=== PATIENT | male | born 1960 | race Hispanic/Latino ===

== ENCOUNTER 2020-08-13 08:04 | Inpatient (IN) | payer MEDICAID, OTHER ==
[~2020-08-13] VITALS: Ht 172.7 cm; Wt 89.4 kg
[2020-08-13] VITALS (24 sets, daily range): BP systolic 126–167; BP diastolic 73–98
[2020-08-13] MEDS ORDERED: HEPARIN SODIUM 1000UNIT/ML 10ML VIAL ONE (08:06)
[2020-08-13] MEDS ORDERED: IOHEXOL-350 75 ML VIAL IV ONE ×2 (08:06→08:54)
[2020-08-13] MEDS ORDERED: IOHEXOL 350 MG/ML 100ML INFUS..BTL IV ONE (08:06)
[2020-08-13] MEDS ORDERED: LIDOCAINE HCL 2% 20ML ONE (08:06)
[2020-08-13] MEDS ORDERED: NITROGLYCERIN 2 MG/VIAL VIAL IV ONE (08:06)
[2020-08-13] MEDS ORDERED: FENTANYL CITRATE PF 50 MCG/1 ML 2ML VIAL ONE (08:06)
[2020-08-13] MEDS ORDERED: MIDAZOLAM HCL 1 MG/ML 2ML VIAL ONE (08:06)
[2020-08-13] MEDS ORDERED: BIVALIRUDIN 250 MG/VIAL IV ONE (08:09)
[2020-08-13 08:14] LABS: BASOPHILS % (AUTO) 0.4 % (0.0-5.0); EOSINOPHILS % (AUTO) 2.3 % (0.0-8.0); HEMATOCRIT 35.2 % (42-54); LYMPHOCYTES % (AUTO) 33.6 % (21.0-51.0); MEAN CORPUSCULAR HEMOGLOBIN 32.2 pg (27.0-33.0); MEAN CORPUSCULAR HGB CONC 35.8 g/dL (32.0-36.0); MONOCYTES % (AUTO) 8.4 % (3.0-13.0); NEUTROPHILS % (AUTO) 54.9 % (40.0-77.0); PLATELET COUNT (AUTO) 171 K/uL (130-400); RED BLOOD CELL COUNT(AUTO) 3.91 MIL/uL (4.50-6.20); RED CELL DISTRIBUTION WIDTH 12.1 % (11.0-15.5); WHITE BLOOD COUNT (AUTO) 6.9 K/uL (4.8-10.8)
[2020-08-13 08:26] LABS: INR 1.13 (0.85-1.15); PROTHROMBIN TIME 12.2 SEC (9.6-11.6)
[2020-08-13 08:27] LABS: PARTIAL THROMBOPLASTIN TIME 21.8 SEC (26.3-35.5)
[2020-08-13 08:29] LABS: ALBUMIN 3.7 g/dL (3.5-5.0); BILIRUBIN,TOTAL 0.4 mg/dL (0.2-1.0); POTASSIUM 4.5 mmol/L (3.5-5.1); TOTAL PROTEIN, SERUM 8.1 g/dL (6.0-8.3)
[2020-08-13] MEDS ORDERED: VERAPAMIL HCL 2.5 MG/ML VIAL ONE (08:40)
[2020-08-13] MEDS ORDERED: ONDANSETRON HCL 4 MG/2 ML VIAL IVP PRN (08:45)
[2020-08-13] MEDS ORDERED: ACETAMINOPHEN 325 MG TAB PO PRN (08:45)
[2020-08-13] MEDS ORDERED: TICAGRELOR 90 MG TABLET ONE (08:49)
[2020-08-13] MEDS ORDERED: MORPHINE SULFATE 4 MG/1ML SYG ONE (08:49)
[2020-08-13] MEDS: FAMOTIDINE/PF 20 MG/2 ML VIAL IV SCH ×2 (09:00→21:13)
[2020-08-13] MEDS ORDERED: SODIUM CHLORIDE 0.9% 1000ML 1,000 ML IV SCH (09:30)
[2020-08-13] MEDS ORDERED: DEXTROSE 50%-WATER 50 ML DISP.SYRIN IV PRN (09:30)
[2020-08-13] MEDS ORDERED: GLUCAGON 1MG KIT 1 MG ML IM PRN (09:30)
[2020-08-13] MEDS ORDERED: NITROGLYCERIN 0.4 MG SL TAB SL PRN (09:30)
[2020-08-13 09:50] LABS: HEMOGLOBIN A1C 8.1 % (4.0-6.0)
[2020-08-13 10:28] LABS: CHOLESTEROL 196 mg/dL (<200); HDL CHOLESTEROL 107 mg/dL (29-71); LDL DIRECT 111 mg/dL (0-99); TRIGLYCERIDES 106 mg/dL (30-200)
[2020-08-13] MEDS: INSULIN HUMULIN R 100 UNIT/ML 3ML SQ SCH ×3 (11:59→21:15)
[2020-08-13] MEDS ORDERED: LOSA100T58 PO (13:31)
[2020-08-13] MEDS ORDERED: FENO145T26 PO (13:31)
[2020-08-13] MEDS ORDERED: LINA5TAB PO (13:31)
[2020-08-13] MEDS ORDERED: GLIP10TA PO (13:31)
[2020-08-13] MEDS: TICAGRELOR 90 MG TABLET PO SCH (21:13)
[2020-08-13] MEDS: ATORVASTATIN CALCIUM 40 MG TABLET PO SCH (21:13)
[2020-08-13] MEDS: METOPROLOL TARTRATE 25 MG TAB PO SCH (21:13)
[2020-08-14] VITALS (18 sets, daily range): BP systolic 100–140; BP diastolic 52–79
[2020-08-14 05:31] LABS: BASOPHILS % (AUTO) 0.3 % (0.0-5.0); EOSINOPHILS % (AUTO) 0.7 % (0.0-8.0); HEMATOCRIT 34.7 % (42-54); LYMPHOCYTES % (AUTO) 14.6 % (21.0-51.0); MEAN CORPUSCULAR HEMOGLOBIN 32.3 pg (27.0-33.0); MEAN CORPUSCULAR VOLUME 89.7 fL (79-99); MONOCYTES % (AUTO) 8.6 % (3.0-13.0); NEUTROPHILS % (AUTO) 75.3 % (40.0-77.0); PLATELET COUNT (AUTO) 171 K/uL (130-400); RED BLOOD CELL COUNT(AUTO) 3.87 MIL/uL (4.50-6.20); RED CELL DISTRIBUTION WIDTH 12.1 % (11.0-15.5); WHITE BLOOD COUNT (AUTO) 8.7 K/uL (4.8-10.8)
[2020-08-14 05:55] LABS: CREATININE 0.9 mg/dL (0.5-1.5); POTASSIUM 3.5 mmol/L (3.5-5.1)
[2020-08-14] MEDS ORDERED: POTASSIUM CHLORIDE 10% ELIXIR 20 MEQ/15 ML UDCUP PO PRN (08:30)
[2020-08-14] MEDS ORDERED: POTASSIUM CHLORIDE 20MEQ/100ML 100 ML IV PRN (08:30)
[2020-08-14] MEDS: PANTOPRAZOLE SODIUM 40 MG TABLET.DR PO SCH (08:45)
[2020-08-14] MEDS: FAMOTIDINE/PF 20 MG/2 ML VIAL IV SCH ×2 (08:45→20:55)
[2020-08-14] MEDS: TICAGRELOR 90 MG TABLET PO SCH ×2 (08:45→20:57)
[2020-08-14] MEDS: LISINOPRIL 10 MG TABLET PO SCH (08:45)
[2020-08-14] MEDS: ASPIRIN 81MG TAB.CHEW PO SCH (08:45)
[2020-08-14] MEDS: METOPROLOL TARTRATE 25 MG TAB PO SCH ×2 (08:45→20:56)
[2020-08-14] MEDS: INSULIN HUMULIN R 100 UNIT/ML 3ML SQ SCH ×4 (08:48→22:12)
[2020-08-14] MEDS: POTASSIUM CHLORIDE 20 MEQ ERTAB PO PRN (08:58)
[2020-08-14] MEDS: ATORVASTATIN CALCIUM 40 MG TABLET PO SCH (20:56)
[2020-08-15 04:00] VITALS: BP 107/68
[2020-08-15 04:16] LABS: BASOPHILS % (AUTO) 0.4 % (0.0-5.0); EOSINOPHILS % (AUTO) 1.8 % (0.0-8.0); HEMATOCRIT 35.4 % (42-54); LYMPHOCYTES % (AUTO) 23.2 % (21.0-51.0); MEAN CORPUSCULAR HEMOGLOBIN 31.9 pg (27.0-33.0); MONOCYTES % (AUTO) 10.4 % (3.0-13.0); PLATELET COUNT (AUTO) 162 K/uL (130-400); RED BLOOD CELL COUNT(AUTO) 3.89 MIL/uL (4.50-6.20); RED CELL DISTRIBUTION WIDTH 12.1 % (11.0-15.5); WHITE BLOOD COUNT (AUTO) 8.3 K/uL (4.8-10.8)
[2020-08-15 04:31] LABS: CREATININE 1.1 mg/dL (0.5-1.5); MAGNESIUM 1.8 mg/dL (1.80-2.40); POTASSIUM 3.7 mmol/L (3.5-5.1)
[2020-08-15] MEDS: INSULIN HUMULIN R 100 UNIT/ML 3ML SQ SCH ×3 (07:30→17:05)
[2020-08-15 07:50] VITALS: BP 119/71
[2020-08-15] MEDS: TICAGRELOR 90 MG TABLET PO SCH (09:26)
[2020-08-15] MEDS: ASPIRIN 81MG TAB.CHEW PO SCH (09:26)
[2020-08-15] MEDS: PANTOPRAZOLE SODIUM 40 MG TABLET.DR PO SCH (09:26)
[2020-08-15] MEDS: FAMOTIDINE/PF 20 MG/2 ML VIAL IV SCH (09:27)
[2020-08-15] MEDS: METOPROLOL TARTRATE 25 MG TAB PO SCH (09:27)
[2020-08-15] MEDS: LISINOPRIL 10 MG TABLET PO SCH (09:27)
[2020-08-15 12:09] VITALS: BP 117/75
[2020-08-15 16:22] VITALS: BP 126/84
[2020-08-15] MEDS ORDERED: METO25 PO (16:49)
[2020-08-15] MEDS ORDERED: LISI10TA24 PO (16:49)
[2020-08-15] MEDS ORDERED: ASPI-1005 PO (16:49)
[2020-08-15] MEDS ORDERED: ATOR40TA69 PO (16:49)
[2020-08-15] MEDS ORDERED: Nitroglycerin 0.4MG Sl Tab SL (16:49)
== END 2020-08-15 17:51 | disposition home or self-care (01) | DRG 174 ==
LOC: EDH 08:04 → OBSVTOIN 08:05 → EDHIP 08:05 → 2CH 11:48 → 4BH 08-14 17:11
PROVIDERS: ADMIT Hospitalist; ATTEND Hospitalist
PROC: 027034Z Dilation of Coronary Artery, One Artery with Drug-eluting Intraluminal Device, Percutaneous Approach (ICD-10-PCS; principal; 2020-08-13)
PROC: 4A023N7 Measurement of Cardiac Sampling and Pressure, Left Heart, Percutaneous Approach (ICD-10-PCS; 2020-08-13)
PROC: B2111ZZ Fluoroscopy of Multiple Coronary Arteries using Low Osmolar Contrast (ICD-10-PCS; 2020-08-13)
PROC: B2151ZZ Fluoroscopy of Left Heart using Low Osmolar Contrast (ICD-10-PCS; 2020-08-13)
DX: I21.19 ST elevation (STEMI) myocardial infarction involving other coronary artery of inferior wall (principal); I50.41 Acute combined systolic (congestive) and diastolic (congestive) heart failure; I11.0 Hypertensive heart disease with heart failure; E78.5 Hyperlipidemia, unspecified; E87.6 Hypokalemia; I25.10 Atherosclerotic heart disease of native coronary artery without angina pectoris; E11.65 Type 2 diabetes mellitus with hyperglycemia
CPT/HCPCS: 36415; 71045; 80048; 80053; 80061; 82948; 83036; 83735; 83880; 84484; 85025; 85610; 85730; 93005; 93306; 93356; 93458; C1760; C1769; C1887; C1894; C9606; G0378; J0583; J1644; J1815; J2250; J2270; J3010; J3490; Q9967

== ENCOUNTER 2025-06-01 15:49 | Inpatient (IN) | payer MEDICAID, MEDICARE ==
[~2025-06-01] VITALS: Ht 162.6 cm; Wt 84.1 kg
[~2025-06-01 15:49] MED LIST: ASPI-1005 PO; ATOR40TA69 PO; GLIP10TA2 PO; LINA5TAB PO; LISI10TA24 PO; METO25 PO; Nitroglycerin 0.4MG Sl Tab SL
--- NOTE | 2025-06-01 15:58 | NUR ---
PT JUST PLACED IN MY ED BED 19
[2025-06-01 16:24] LABS: IMMATURE GRANULOCYTE ABSOLUTE 0.03 K/uL (0-1); NUCLEATED RED BLOOD CELLS 0.0 % (0.0-0.19); PLATELET COUNT (AUTO) 201 K/uL (130-400); RED BLOOD CELL COUNT(AUTO) 4.10 MIL/uL (4.50-6.20); RED CELL DISTRIBUTION WIDTH 11.9 % (11.0-15.5); WHITE BLOOD COUNT (AUTO) 8.5 K/uL (4.8-10.8)
[2025-06-01 16:40] LABS: CREATININE 1.4 mg/dL (0.5-1.3); GLOMERULAR FILTR. RATE CALC 56.0 mL/min (>90); GLUCOSE,RANDOM 156.0 mg/dL (70-105); SODIUM SERUM 135.0 mmol/L (136-145); UREA NITROGEN, BLOOD 18.0 mg/dL (7-18)
[2025-06-01 16:49] LABS: CREATINE KINASE, TOTAL 105.0 U/L (21-232)
[2025-06-01] MEDS: guaiFENesin-DM 200/20MG 10ML PO ONE (16:51)
--- NOTE | 2025-06-01 16:54 | HMCIMG ---
EXAM: CR Chest, 1 View. CLINICAL HISTORY: cough COMPARISON: None provided. FINDINGS: LUNGS: Right middle lobe airspace disease may reflect an infectious process. PLEURAL SPACES: No evidence of pleural effusion or pneumothorax. MEDIASTINUM: The cardiomediastinal silhouette is within normal limits. BONES: No aggressive appearing osseous lesion seen. IMPRESSION: 1. Right middle lobe airspace disease, possibly infectious. /[place]
[2025-06-01 16:58] LABS: COVID19 (SARS ANTIGEN RAPID) PRESUMPTIVE NEGATIVE (NEGATIVE); INFLUENZA TYPE A Negative For Type A (NEGATIVE); INFLUENZA TYPE B Negative For Type B (NEGATIVE)
[2025-06-01] MEDS: AZITHROMYCIN 500MG+NS 250ML 250 ML IV ONE (17:48)
[2025-06-01] MEDS: 0.9%NACL 1000ML 1,000 ML IV ONE (17:48)
--- NOTE | 2025-06-01 19:01 | NUR ---
HOSPITALIST AT BEDSIDE W/PT
--- NOTE | 2025-06-01 19:33 | NUR ---
REPORT ENDORSED TO COLT MALIK
--- NOTE | 2025-06-01 20:07 | HP ---
[facility] HISTORY AND PHYSICAL Date of Service: Jun 01, 2025 Time of Service: 19:50 PCP: Self Referral HISTORY OF PRESENT ILLNESS: This is a 64-year-old male past medical history of diabetes, hypertension hyperlipidemia coronary artery disease with cardiac stent x1 and past surgical history of right nephrectomy who present to the ED for complaints of dry cough,fever and chest tightness when coughing which started 3 days ago.Patient reports he was in [place] 8 days ago,denies any sick contact at home. Seen and examined patient in the Ed awake,alert and coherent,appears comfortable.Patient denies chest pain,palpitation,shortness of breath,nausea vomiting,sore throat ,body pain and abdominal pain.Patient reports he had fever yesterday and took Tylenol.Latest V/S T 98.1,HR 83,BP 156/83 Sat 98% RA. Labs: Hemoglobin 13, hematocrit 38, platelet count 201. Sodium 135, creatinine 1.4, GFR 56, random glucose 156 acid 1.4 troponin six. Chest x-ray result revealed right middle lobe airspace disease possible infectious. While in the ER patient received 1 L NS bolus, Rocephin 1 g IV and azithromycin IV dexamethasone 6 mg IM and Robitussin.Will admit patient for further medical management . REVIEW OF SYSTEMS CONSTITUTIONAL: Complain of fever Denies chills, or night sweats. No unintentional weight loss reported. NEUROLOGICAL: Denies headache, amaurosis fugax, motor weakness, sensory deficit, vertigo/spinning sensation, gait abnormalities, or tremors. ENT: No hearing loss, otalgia, otorrhea, rhinitis, rhinorrhea, hoarseness, or sore throat. CARDIOVASCULAR: Denies any exertional angina, dyspnea on exertion, orthopnea, paroxysmal nocturnal dyspnea, palpitations, life-threatening arrhythmias, claudication. PULMONARY: Dry cough Denies any shortness of breath, phlegm/sputum, hemoptysis, pleuritic chest pain. SLEEP: Denies morning headaches, daytime somnolence or napping. Denies difficulty falling asleep, staying asleep, waking from sleep. Denies knowledge of snoring. GASTROINTESTINAL: Denies any type of dysphagia to either liquids or solids. Denies nausea, vomiting, pyrosis, early satiety, abdominal pain, diarrhea, constipation, or changes in stool consistency or caliber. Denies coffee-ground emesis, hematemesis, hematochezia, or melanotic stools. GENITOURINARY: Denies frequency, urgency, nocturia, hematuria or incontinence (Storage/Irritative symptoms.) Low urinary stream, straining to void, urinary intermittency or hesitancy, splitting of the voiding stream, terminal dribbling. ENDOCRINOLOGIC: Denies polyuria, polydipsia, polyphagia or heat/cold intolerances. HEMATOLOGIC: Denies thrombophilia/previous clots, or coagulopathy/bleeding disorders. ONCOLOGIC: Denies personal history of malignancy. DERMATOLOGIC: Denies rashes or pruritus. PSYCHIATRIC: Denies any suicidal or homicidal ideation. Denies hallucinations. PAST MEDICAL HISTORY: [ Diabetes ,Hypertension, hyperlipidemia Coronary artery disease with cardiac stent x1 on August 2020 ] PAST SURGICAL HISTORY: [cardiac stent x1 and right nephrectomy ] PAST SOCIAL HISTORY: [ Patient lives with .Patient admits to drinking 6-7 beers per days last drink was 3 days ago.Patient denies cigarette and recreational drug use] FAMILY HISTORY: [ Noncontributory ] Coded Allergies: No Known Allergies (Verified Allergy, Unknown, 08/13/20) PHYSICAL EXAM GENERAL APPEARANCE: The patient is awake, alert, and oriented, in no acute c ardiopulmonary distress. NEUROLOGICAL: Cranial nerves II-XII grossly intact. Motor is 5/5 in bilateral upper and lower extremities proximal to distal. No sensory deficits. HEENT: Face is symmetric. Pupils are equal and reactive. Extraocular movements are intact. NECK: Supple. No JVD. No thyromegaly. No submental, submandibular, pre- /postauricular, occipital or supraclavicular lymphadenopathy. CHEST: Normal chest expansion. No Telemetry. LUNGS: Absence of any rales, rhonchi or any wheezing. CARDIOVASCULAR: Regular. S1 and S2 normal. No appreciable rubs, murmurs or gallops. ABDOMEN: Soft, nontender, and nondistended. There is no rebound, voluntary guarding, or rigidity. : Deferred. No Patterson. EXTREMITIES: Non-edematous and not cyanotic. No clubbing. Good capillary refill. SKIN: No skin breakdown. Vital Sign (Last 24 Hours) 06/01/25 15:50 Temp 98.1 Pulse 83 Resp 20 B/P (MAP) 156/83 Pulse Ox 98 O2 Delivery Room Air LABS: Laboratory: Test 06/01/25 17:30 06/01/25 16:17 Range/Units Lactic Acid Level 1.4 0.8-2.5 mmol/L White Blood Count 8.5 4.8-10.8 K/uL Red Blood Count 4.10 L 4.50-6.20 MIL/uL Hemoglobin 13.2 L 14.0-18.0 g/dL Hematocrit 38.2 L 42-54 % Mean Corpuscular Volume 93.2 79-99 fL Mean Corpuscular Hemoglobin 32.2 27.0-33.0 pg Mean Corpuscular Hemoglobin Concent 34.6 32.0-36.0 g/dL Red Cell Distribution Width 11.9 11.0-15.5 % Platelet Count 201 130-400 K/uL Mean Platelet Volume 9.9 7.5-10.5 fL Immature Granulocyte % (Auto) 0.4 0-1 % Neutrophils (%) (Auto) 71.9 40.0-77.0 % Lymphocytes (%) (Auto) 16.3 L 21.0-51.0 % Monocytes (%) (Auto) 9.7 3.0-13.0 % Eosinophils (%) (Auto) 1.2 0.0-8.0 % Basophils (%) (Auto) 0.5 0.0-5.0 % Neutrophils # (Auto) 6.1 1.8-7.7 K/uL Lymphocytes # (Auto) 1.4 1.0-4.8 K/uL Monocytes # (Auto) 0.8 0.1-1.0 K/uL Eosinophils # (Auto) 0.10 0.00-0.70 K/uL Basophils # (Auto) 0.04 0.00-0.20 K/uL Absolute Immature Granulocyte (auto 0.03 0-1 K/uL Nucleated Red Blood Cells 0.0 0.0-0.19 % Sodium Level 135 L 136-145 mmol/L Potassium Level 4.1 3.5-5.1 mmol/L Chloride Level 101 101-111 mmol/L Carbon Dioxide Level 26 21-32 mmol/L Blood Urea Nitrogen 18 7-18 mg/dL Creatinine 1.4 H 0.5-1.3 mg/dL Glomerular Filtration Rate Calc 56 >90 mL/min Random Glucose 156 H 70-105 mg/dL Total Calcium 9.0 8.5-10.1 mg/dL Total Creatine Kinase 105 21-232 U/L Troponin I High Sensitivity 6 4-75 ng/L DIAGNOSTICS / RADIOLOGY: [ ] ASSESSMENT: Possible community-acquired pneumonia POA Acute kidney injury POA Normocytic normochromic anemia POA Diabetes POA Hypertension POA Hyperlipidemia POA Obesity POA Alcoholism POA Coronary artery disease with cardiac stent x1 POA PLAN: We will admit patient in medical surgical We will start on heart healthy diet We will start on banana bag per CIWA protocol Continue Rocephin and azithromycin for broad-spectrum coverage We will start on famotidine 20 mg p.o. daily for GI prophylaxis We will replace electrolytes as needed per protocol We will start on insulin sliding scale AC & HS with hypoglycemia protocol We will add prn medication for fever,pain,cough , nausea and vomiting We will reconcile home meds once medlist available Counseled on Alcohol use cessation We will request labs in am Further orders to follow depending on above results Case discussed with attending physician and came up with above treatment and plan of care. ADVANCED CARE PLANNING 1. Which of the following were discussed? Hospice Care - No Therapeutic options - Yes Advance Directives - No Other discussions - 2. Discussed with who? Patient and Bhumi 3. Voluntary nature of this service was explained to the patient? Yes 4. Amount of time spent - ___23 min____ 5. Reviewed by Physician? (if this service was performed by NPP) Yes Patient seen and examined by me. Agree with note by EVENT MARKETING MANAGER SEE ADDITIONAL ORDERS PER CHART DISCUSSED WITH NURSING STAFF CHRISTINE NEIL Jun 01, 2025 20:06
--- NOTE | 2025-06-01 20:17 | ERN ---
ED Note History of Present Illness Stated Complaint: FLU LIKE SYMPTOMS Chief Complaint: Flu Symptoms Time Seen by MD: 15:59 Time Seen by Midlevel: 15:59 Dictation: The patient is a 64-year-old male with a history of diabetes, CAD, nephrectomy who presents to the emergency department with complaints of three days of dry cough, congestion and fevers. Patient reports he had some chest pain three days ago but denies any chest pain at the moment. Allergies: Coded Allergies: No Known Allergies (Verified Allergy, Unknown, 08/13/20) Home Meds Active Scripts [Nitroglycerin 0.4MG Sl Tab] 0.4 MG TAB.SUBL No Conflict Check, 0.4 MG SL AD PRN for CHEST PAIN, #15 TAB.SL 1 Refill Prov:YUSRA YIN [facility] 08/15/20 Metoprolol Tartrate (Lopressor) 25 Mg Tab, 25 MG PO BID for 30 Days, #60 TAB Prov:YUSRA YIN [facility] 08/15/20 Lisinopril (Lisinopril) 10 Mg Tablet, 10 MG PO DAILY for 30 Days, #30 TAB Prov:YUSRA YIN [facility] 08/15/20 Aspirin (ASPIRIN 81MG CHEW TAB) 81 Mg Tab.chew, 81 MG PO DAILY for 30 Days, #30 TAB.CHEW Prov:YUSRA YIN [facility] 08/15/20 Atorvastatin Calcium (LIPITOR) 40 Mg Tablet, 40 MG PO HS for 30 Days, #30 TAB Prov:YUSRA YIN [facility] 08/15/20 Reported Medications Glipizide (Glucotrol Xl) 10 Mg Tab.er.24, 10 MG PO DAILY 08/13/20 Linagliptin (Tradjenta) 5 Mg Tablet, 5 MG PO DAILY, TAB 08/13/20 Past Medical History Past Medical History: Diabetes-Type II, Heart Disease, Hypertension Additional Past Medical Hx: HX OF ID Surgical History: Other Surgical History Other: RIGHT NEPHRECTOMY RN Note Reviewed/Agreed w/PFSH: Yes Review of System Dictation Constitutional: Negative for ,chills, and weight loss positive for fever Eyes: Negative for injury, pain,redness, and discharge ENT: Negative for injury,pain or swelling Cardiovascular: Negative for palpitations, and edema for chest pain Respiratory: Negative for shortness of breath,and wheezing, positive for cough Abdomen/GI: Negative for abdominal pain, nausea, vomiting, diarrhea, and constipation Back: Negative for injury and pain : Negative for injury, bleeding and discharge MS/Extremity: Negative for injury and deformity Skin: Negative for rash, and discoloration Neuro: Negative for headache, weakness, numbness, tingling, and seizure Psych: Negative for suicide ideation, homicidal ideation, and hallucinations Initial Vital Sign VS Vital Signs Date Time Temp Pulse Resp B/P (MAP) Pulse Ox O2 Delivery O2 Flow Rate FiO2 06/01/25 15:50 98.1 83 20 156/83 98 Room Air Physical Exam Dictation Vital Signs reviewed General Appearance: Alert, oriented x 3, no acute distress, well developed, nourished. Head and Face: non-traumatic. Eyes: PERRL, pink conjunctivas, eyelid no trauma, anterior chamber with arcus senilis. Ears: Pinnas intact and no signs of trauma or erythema ear canals clear and no discharge TM no erythema Nose: No discharge, no bleeding. Oropharynx: Mouth normal, tongue pink. pharynx clear,no erythema, tonsils no exudates, no abscesses noted, mucous membrane moist Neck: Supple, non-tender, no thyromegaly, no masses, no JVD, no bruits Breast:Deferred Chest:No tenderness, no crepitus, no paradoxical movement, no retractions Lungs:Clear, well-ventilated, symmetric, no rales, no wheezing, no rhonchi, no stridor, good breath sounds bilaterally Heart: Regular rate, regular rhythm, no murmur, no gallops Vascular: no peripheral edema, Abdomen: Soft, positive bowel sounds, nondistended, no guarding, nontender, no rebound, no masses no hepatomegaly, no splenomegaly, no Sal's sign, no hernias. Rectal: Deferred Genital: Deferred Neurological: Normal speech, motor function intact, sensory function intact Musculoskeletal: Neck nontender, full range of motion, back nontender, full range of motion, Extremities: nontender, full range of motion Skin: Color pink, dry, no turgor, no rash, no lacerations, no abrasions, no contusions. Lymphatic: Deferred Results (Laboratory/Radiology) Laboratory/Radiology Laboratory Tests Test 06/01/25 16:17 06/01/25 17:30 White Blood Count 8.5 K/uL (4.8-10.8) Red Blood Count 4.10 MIL/uL (4.50-6.20) L Hemoglobin 13.2 g/dL (14.0-18.0) L Hematocrit 38.2 % (42-54) L Mean Corpuscular Volume 93.2 fL (79-99) Mean Corpuscular Hemoglobin 32.2 pg (27.0-33.0) Mean Corpuscular Hemoglobin Concent 34.6 g/dL (32.0-36.0) Red Cell Distribution Width 11.9 % (11.0-15.5) Platelet Count 201 K/uL (130-400) Mean Platelet Volume 9.9 fL (7.5-10.5) Immature Granulocyte % (Auto) 0.4 % (0-1) Neutrophils (%) (Auto) 71.9 % (40.0-77.0) Lymphocytes (%) (Auto) 16.3 % (21.0-51.0) L Monocytes (%) (Auto) 9.7 % (3.0-13.0) Eosinophils (%) (Auto) 1.2 % (0.0-8.0) Basophils (%) (Auto) 0.5 % (0.0-5.0) Neutrophils # (Auto) 6.1 K/uL (1.8-7.7) Lymphocytes # (Auto) 1.4 K/uL (1.0-4.8) Monocytes # (Auto) 0.8 K/uL (0.1-1.0) Eosinophils # (Auto) 0.10 K/uL (0.00-0.70) Basophils # (Auto) 0.04 K/uL (0.00-0.20) Absolute Immature Granulocyte (auto 0.03 K/uL (0-1) Nucleated Red Blood Cells 0.0 % (0.0-0.19) Sodium Level 135 mmol/L (136-145) L Potassium Level 4.1 mmol/L (3.5-5.1) Chloride Level 101 mmol/L (101-111) Carbon Dioxide Level 26 mmol/L (21-32) Blood Urea Nitrogen 18 mg/dL (7-18) Creatinine 1.4 mg/dL (0.5-1.3) H Glomerular Filtration Rate Calc 56 mL/min (>90) Random Glucose 156 mg/dL (70-105) H Total Calcium 9.0 mg/dL (8.5-10.1) Total Creatine Kinase 105 U/L (21-232) Troponin I High Sensitivity 6 ng/L (4-75) Lactic Acid Level 1.4 mmol/L (0.8-2.5) REASON: cough ORDERING PHYSICIAN: YI HOPPER PROCEDURE: CXR1VW - CHEST 1VW EXAM: CR Chest, 1 View. CLINICAL HISTORY: cough COMPARISON: None provided. FINDINGS: LUNGS: Right middle lobe airspace disease may reflect an infectious process. PLEURAL SPACES: No evidence of pleural effusion or pneumothorax. MEDIASTINUM: The cardiomediastinal silhouette is within normal limits. BONES: No aggressive appearing osseous lesion seen. IMPRESSION: 1. Right middle lobe airspace disease, possibly infectious. /[place] Labs Reviewed?: Yes EKG: (+) rhythm (This rhythm) EKG Comment: Date:06/01/2025 Time:1908 Ventricular rate:83 MI interval:152 QRS duration:148 QT/QTc:407/478 EKG interpretation: Sinus rhythm, right bundle-branch block Reviewed by ED Attending no STEMI ED Course ED Course Orders Procedure Category Date Status Time Cbc With Differential LAB 06/01/25 Complete 16:08 Troponin I High LAB 06/01/25 Complete Sensitivity 16:08 Creatine Kinase, Total LAB 06/01/25 Complete 16:08 Chest 1vw RAD 06/01/25 Resulted 16:08 Basic Metabolic Panel LAB 06/01/25 Complete 16:08 Covid19 (Sars Antigen LAB 06/01/25 Logged Rapid) 16:08 Influenza Type A & B, LAB 06/01/25 Logged Rapid 16:08 Guaifenesin-Dm PHA 06/01/25 Complete 200/20mg 10ml 16:30 Dexamethasone 4mg/Ml PHA 06/01/25 Complete 1ml Vial (Dexametha 16:30 Blood Cult VONNIE 06/01/25 In Process 17:10 Azithromycin 500mg+Ns PHA 06/01/25 Complete 250ml (Azithromyci 17:30 Lactic Acid LAB 06/01/25 Complete 17:10 Ceftriaxone 1g Vial PHA 06/01/25 Complete (Rocephine 1g Inj) 17:30 0.9%Nacl 1000ml (Ns PHA 06/01/25 Complete 1000ml) 17:30 Edm Admit Bridge Order ADM 06/01/25 Transmitted 18:27 12 Lead Ekg Tracing- EKG 06/01/25 Logged Technical 19:04 Vital Signs(Adult CPOE 06/01/25 Transmitted Hospitalist) 20:07 Daily Weights CPOE 06/01/25 Transmitted 20:07 I&O Q Shift CPOE 06/01/25 Transmitted 20:07 Fever: Blood Cx X 2 CPOE 06/01/25 Transmitted 20:07 Acetaminophen 325 Tab PHA 06/01/25 In Process (Tylenol 325mg Tab 20:30 Acetaminophen 325 Tab PHA 06/01/25 In Process (Tylenol 325mg Tab 20:30 Ondansetron 4mg Inj PHA 06/01/25 In Process (Zofran 4mg Inj) 20:30 Guaifenesin-Dm PHA 06/01/25 In Process 200/20mg 10ml 20:30 Ipratropium/Albuterol PHA 06/01/25 In Process Neb (Duoneb) 20:30 Nurse To Enter Home CPOE 06/01/25 Transmitted Medication 20:07 Admit Orders ADM 06/01/25 Transmitted 20:07 Condition: CPOE 06/01/25 Transmitted 20:07 Activity: Ad Erum CPOE 06/01/25 Transmitted 20:07 Heart Healthy Diet DIET 06/02/25 Transmitted Breakfast Apply Scds CPOE 06/01/25 Transmitted 20:07 Famotidine 20mg Tab PHA 06/02/25 In Process (Pepcid 20mg Tab) 09:00 0.9%Nacl 1000ml (Ns PHA 06/01/25 Complete 1000ml) 20:30 Cbc With Differential LAB 06/02/25 Verified 04:00 Comprehensive LAB 06/02/25 Verified Metabolic Panel 04:00 Magnesium LAB 06/02/25 Verified 04:00 Respiratory Cult VONNIE 06/01/25 Logged W/Gram Stain 20:07 Troponin I High LAB 06/01/25 Logged Sensitivity 20:12 Initiate ADARSH 06/01/25 In Process Hyperglycemia Protoco 20:12 Insulin Regular, PHA 06/01/25 In Process Human 3ml (Humulin R 21:00 Initiate Hypoglycemia ADARSH 06/01/25 In Process Protocol 20:12 Dextrose 50%-Water PHA 06/01/25 In Process (D50w) 20:30 Glucagon 1mg Kit PHA 06/01/25 In Process (Glucagon 1mg Kit) 20:30 Magnesium 2gm Premix PHA 06/01/25 In Process 50ml (Magnesium 2gm 20:30 Initiate Po ADARSH 06/01/25 In Process Hypokalemia Protoc 20:12 Potassium Chloride PHA 06/01/25 In Process 20meq/100ml ([place] 20:30 Potassium Chl 10% PHA 06/01/25 In Process Elixir 20meq (Kcl 10% 20:30 Potassium Chloride PHA 06/01/25 In Process 20meq Er (K-Dur/Klor- 20:30 Notify Physician If CPOE 06/01/25 Transmitted There Is 20:12 Notify Md On The Next CPOE 06/01/25 Transmitted 20:12 Notify Md On The CPOE 06/01/25 Transmitted Next(Cont.) 20:12 Etoh Alcohol ADARSH 06/01/25 In Process Withdrawal Ords 20:12 Chlordiazepoxide Hcl PHA 06/01/25 In Process 25 Mg Cap (Librium 20:30 Chlordiazepoxide Hcl PHA 06/01/25 In Process 25 Mg Cap (Librium 20:30 Lorazepam 2 Mg PHA 06/01/25 In Process (Ativan) 20:30 Thiamine Hcl (Vitamin PHA 06/01/25 In Process B-1)... 20:30 Pharmacy PHA 06/01/25 Complete Communication 20:30 Use The Ciwa-Ar CPOE 06/01/25 Transmitted Assmt. Tool 20:12 Assess The Need For CPOE 06/01/25 Transmitted Seizure & 20:12 Vs Per Unit Routine & CPOE 06/01/25 Transmitted With 20:12 Document Etoh CPOE 06/01/25 Transmitted Withdrawal Score 20:12 Azithromycin 500mg+Ns PHA 06/02/25 In Process 250ml (Azithromyci 20:30 Ceftriaxone 1g Vial PHA 06/02/25 In Process (Rocephine 1g Inj) 20:30 Current Medications Medications (Trade) Dose Ordered Sig/Dick Route PRN Reason Start Time Stop Time Status Last Admin Dose Admin Azithromycin 250 ml @ 125 mls/hr ONCE ONCE IV 06/01/25 17:30 06/01/25 19:29 DC 06/01/25 17:48 Ceftriaxone Sodium (ROCEphine 1G INJ) 1 gm ONCE ONCE IVPB 06/01/25 17:30 06/01/25 17:31 DC 06/01/25 17:48 Dexamethasone Sodium Phosphate (dexaMETHasone 4MG/ML 1ML VIAL) 6 mg ONCE ONCE IM 06/01/25 16:30 06/01/25 16:31 DC 06/01/25 16:51 Guaifenesin/ Dextromethorphan (RobiTUSSin DM 200/20MG 10ML) 10 ml ONCE ONCE PO 06/01/25 16:30 06/01/25 16:31 DC 06/01/25 16:51 Sodium Chloride 1,000 ml @ 0 mls/hr ONCE ONCE IV 06/01/25 17:30 06/01/25 17:31 DC 06/01/25 17:48 Vital Signs Date Time Temp Pulse Resp B/P (MAP) Pulse Ox O2 Delivery O2 Flow Rate FiO2 06/01/25 15:50 98.1 83 20 156/83 98 Room Air Medical Decision Making MDM MDM: The patient is a 64-year-old male with a history of diabetes, CAD, nephrectomy who presents to the emergency department with complaints of three days of dry cough, congestion and fevers. Patient reports he had some chest pain three days ago but denies any chest pain at the moment. CBC showed no leukocytosis, no anemia, chemistry showed slightly elevated creatinine, negative troponin, lactic acid of 1.4, chest x-ray showed right middle lobe pneumonia patient was started on antibiotics and will be admitting for further treatment. Differential diagnosis: Pneumonia, upper respiratory infection, ACS, pneumothorax, dehydration Comorbidities: Diabetes, CAD, nephrectomy Tests considered and not ordered secondary to shared decision making include: none Previous outside records reviewed: none Risk of complication and/or morbidity or mortality of patient management: The patient meets criteria for admission. Need for emergency major/minor surgery: No There are no social concerns with this patient. I independently interpreted the tests I ordered (labs, urinalysis, etc.). I discussed the case with the hospitalist for admission. aMy MORGAN who accepts admission I discussed the case with the following specialists: none. Historian: pateint. I independently interpreted imaging studies and EKGs that I ordered (US, CT, XR, EKG, etc.). External chart review: none. Medical management and examination interpretation discussions were had by me with other qualified healthcare professionals as indicated for the patient's care. DX & DISP Disposition: Inpatient Decision to Admit Date: Jun 01, 2025 Decision to Admit Time: 18:27 Departure Impression: Primary Impression: Pneumonia Additional Impressions: Anemia, Acute kidney injury Condition: Stable Referrals: SELF,REFERRAL (PCP) I have reviewed the case, and I agree with, Diagnosis and Plan YI HOPPER HYDRAULIC HAMMER OPERATOR Jun 01, 2025 20:17
[2025-06-01] MEDS ORDERED: MAGNESIUM 2GM PREMIX 50ML 50 ML IV PRN (20:30)
[2025-06-01] MEDS ORDERED: PoTASSium chloRIDE 20MEQ ER 20 MEQ ERTAB PO PRN (20:30)
[2025-06-01] MEDS ORDERED: GLUCAGON 1MG KIT 1 MG ML IM PRN (20:30)
[2025-06-01] MEDS ORDERED: 0.9%NACL 1000ML 1,000 ML IV SCH (20:30)
[2025-06-01] MEDS ORDERED: PHARMACY COMMUNICATION MISC PRN (20:30)
[2025-06-01] MEDS ORDERED: guaiFENesin-DM 200/20MG 10ML PO PRN (20:30)
[2025-06-01] MEDS ORDERED: PoTASSium chl 10% ELIXIR 20MEQ 20 MEQ/15 ML UDCUP PO PRN (20:30)
[2025-06-01] MEDS ORDERED: DEXTROSE 50%-WATER 50 ML DISP.SYRIN IV PRN (20:30)
[2025-06-01] MEDS: THIAMINE HCL 100 MG, FOLic ACID 5 MG/ML VIAL 1 MG, M.V.I. IV [ADULT] 10 ML in 0.9%NACL ... IV SCH (21:38)
--- NOTE | 2025-06-01 21:56 | NUR ---
REPORT GIVEN TO NURSE LITTLE
[2025-06-01 22:10] VITALS: BP 142/86; PULSE 86; RESP 18; TEMP 98; O2SAT 97
[2025-06-01 22:49] VITALS: PULSE 80; RESP 18; O2SAT 97
[2025-06-01] MEDS: SODIUM CHLORIDE 3% FOR INHALATION 4 ML/AMP VIAL.NEB IH ONE (22:51)
[2025-06-02] VITALS (9 sets, daily range): BP systolic 138–147; BP diastolic 79–90; PULSE 68–79; RESP 18–20; TEMP 97.7–98.9; O2SAT 96–99
[2025-06-02 04:56] LABS: IMMATURE GRANULOCYTE ABSOLUTE 0.04 K/uL (0-1); NUCLEATED RED BLOOD CELLS 0.0 % (0.0-0.19); PLATELET COUNT (AUTO) 195 K/uL (130-400); RED BLOOD CELL COUNT(AUTO) 3.91 MIL/uL (4.50-6.20); RED CELL DISTRIBUTION WIDTH 11.6 % (11.0-15.5); WHITE BLOOD COUNT (AUTO) 7.1 K/uL (4.8-10.8)
[2025-06-02 05:11] LABS: ASPARTATE AMINOTRANSFERASE 25.0 U/L (10-37); CREATININE 1.1 mg/dL (0.5-1.3); GLOMERULAR FILTR. RATE CALC 75.0 mL/min (>90); GLUCOSE,RANDOM 169.0 mg/dL (70-105); SODIUM SERUM 135.0 mmol/L (136-145); TOTAL PROTEIN, SERUM 7.7 g/dL (6.0-8.3); UREA NITROGEN, BLOOD 22.0 mg/dL (7-18)
[2025-06-02] MEDS: SODIUM CHLORIDE 3% FOR INHALATION 4 ML/AMP VIAL.NEB IH ONE (07:20)
[2025-06-02] MEDS ORDERED: COMPOUND IV REFRIGERATED 1 EACH IVSOLN MISC PRN (08:00)
[2025-06-02] MEDS: FAMOTIDINE 20MG TAB PO SCH (09:32)
[2025-06-02 10:29] LABS: AMPHET/METH SCREEN,URINE NEGATIVE (NEGATIVE); BARBITURATE SCREEN, URINE NEGATIVE (NEGATIVE); CANNABINOID SCREEN,URINE NEGATIVE (NEGATIVE); COCAINE SCREEN,URINE NEGATIVE (NEGATIVE)
--- NOTE | 2025-06-02 11:02 | NUR ---
DCP:HOME Pt currently lives at home with his . Pt denies having any DME, home health, or provider services. Pt states that he is able to complete ADLs independently. PCP is Ox[facility] Croft and uses their pharmacy for any RX needs. At DC pt will want to go home and family can assist with transportation.
--- NOTE | 2025-06-02 11:08 | EKG ---
[facility] Test Date: 2025-06-01 Test Time: 19:08:57 Pat Name: HARRIET GONZALEZ Department: [facility] Room: 314 1 Gender: M Assistance Representative: [id number] : 1960 Requested By: YI HOPPER Order Number: [id number] Reading MD: Kelly Matias Measurements Intervals [place] Rate: 83 P: 42 HI: 152 QRS: 32 QRSD: 148 T: -20 QT: 407 QTc: 478 Interpretive Statements Sinus rhythm Right bundle branch block Inferior infarct, age indeterminate Compared to ECG 08/13/2020 08:04:50 ST (T wave) deviation no longer present Myocardial infarct finding still present Electronically Signed On 06-05-2025 08:52:21 HEALTH PLAN SPECIALIST by Kelly Matias Please click the below link to view image of tracing.
--- NOTE | 2025-06-02 12:31 | PN ---
[facility] PROGRESS NOTE Date of Service: Jun 02, 2025 Time of Service: 12:31 HISTORY OF PRESENT ILLNESS: This is a 64-year-old male past medical history of diabetes, hypertension hyperlipidemia coronary artery disease with cardiac stent x1 and past surgical history of right nephrectomy who present to the ED for complaints of dry cough,fever and chest tightness when coughing which started 3 days ago.Patient reports he was in [place] 8 days ago,denies any sick contact at home. Seen and examined patient in the Ed awake,alert and coherent,appears comfortable.Patient denies chest pain,palpitation,shortness of breath,nausea vomiting,sore throat ,body pain and abdominal pain.Patient reports he had fever yesterday and took Tylenol.Latest V/S T 98.1,HR 83,BP 156/83 Sat 98% RA. Labs: Hemoglobin 13, hematocrit 38, platelet count 201. Sodium 135, creatinine 1.4, GFR 56, random glucose 156 acid 1.4 troponin six. Chest x-ray result revealed right middle lobe airspace disease possible infectious. While in the ER patient received 1 L NS bolus, Rocephin 1 g IV and azithromycin IV dexamethasone 6 mg IM and Robitussin and was admitted for further medical management . SUBJECTIVE: 06/02/2025: Patient was evaluated at bedside and he appears comfortable and appears in no acute cardiopulmonary distress. Patient admits to improving cough and denies fevers and chest tightness. Chest x-ray was consistent with right middle lobe consolidation and patient is currently being treated with Rocephin 1 g Q 24 and azithromycin 500 mg Q 24. Patient had elevated alkaline phosphatase 270, GGT 431and a right upper quadrant ultrasound was ordered. We will resume his home medications once available. We will continue to monitor for improvement. REVIEW OF SYSTEMS CONSTITUTIONAL: Denies fevers, chills, or night sweats. No unintentional weight loss reported. NEUROLOGICAL: Denies headache, motor weakness, sensory deficit, vertigo/spinning sensation, gait abnormalities, or tremors. ENT: No hearing loss, otalgia, otorrhea, rhinitis, rhinorrhea, hoarseness, or sore throat. CARDIOVASCULAR: Denies any exertional angina, dyspnea on exertion, orthopnea, paroxysmal nocturnal dyspnea, palpitations, life-threatening arrhythmias, claudication. PULMONARY: Dry cough, improving Denies any shortness of breath, phlegm/sputum, hemoptysis, pleuritic chest pain. GASTROINTESTINAL: Denies any type of dysphagia to either liquids or solids. Denies nausea, vomiting, pyrosis, early satiety, abdominal pain, diarrhea, co nstipation, or changes in stool consistency or caliber. Denies coffee-ground emesis, hematemesis, hematochezia, or melanotic stools. GENITOURINARY: Denies frequency, urgency, nocturia, hematuria or incontinence (Storage/Irritative symptoms.) Low urinary stream, straining to void, urinary intermittency or hesitancy, splitting of the voiding stream, terminal dribbling. ENDOCRINOLOGIC: Denies polyuria, polydipsia, polyphagia or heat/cold intolerances. PHYSICAL EXAM GENERAL APPEARANCE: The patient is awake, alert, and oriented, in no acute cardiopulmonary distress. NEUROLOGICAL: Cranial nerves II-XII grossly intact. Motor is 5/5 in bilateral upper and lower extremities proximal to distal. No sensory deficits. HEENT: Face is symmetric. Pupils are equal and reactive. Extraocular movements are intact. NECK: Supple. No JVD. No thyromegaly. No submental, submandibular, pre- /postauricular, occipital or supraclavicular lymphadenopathy. CHEST: Normal chest expansion. No Telemetry. LUNGS: Absence of any rales, rhonchi or any wheezing. CARDIOVASCULAR: Regular. S1 and S2 normal. No appreciable rubs, murmurs or gallops. ABDOMEN: Soft, nontender, and nondistended. There is no rebound, voluntary guarding, or rigidity. : Deferred. No [place]. EXTREMITIES: Non-edematous and not cyanotic. No clubbing. Good capillary refill. SKIN: No skin breakdown. Vital Signs (last 8hr) Date Time Temp Pulse Resp B/P (MAP) Pulse Ox O2 Delivery O2 Flow Rate FiO2 06/02/25 11:32 98.4 77 20 147/88 96 06/02/25 08:21 97.7 73 18 140/83 97 Room Air 06/02/25 07:20 78 18 N/A Room Air 21 LABS: Laboratory: Test 06/02/25 10:55 06/02/25 10:00 06/02/25 04:33 06/01/25 20:50 Range/Units Whole Blood Glucose 180 H 70-110 MG/DL Urine Opiates Screen NEGATIVE NEGATIVE Urine Barbiturates Screen NEGATIVE NEGATIVE Urine Phencyclidine Screen NEGATIVE NEGATIVE Urine Amphetamines Screen NEGATIVE NEGATIVE Urine Benzodiazepines Screen NEGATIVE NEGATIVE Urine Cocaine Screen NEGATIVE NEGATIVE Urine Marijuana (THC) Screen NEGATIVE NEGATIVE White Blood Count 7.1 4.8-10.8 K/uL Red Blood Count 3.91 L 4.50-6.20 MIL/uL Hemoglobin 12.4 L 14.0-18.0 g/dL Hematocrit 35.9 L 42-54 % Mean Corpuscular Volume 91.8 79-99 fL Mean Corpuscular Hemoglobin 31.7 27.0-33.0 pg Mean Corpuscular Hemoglobin Concent 34.5 32.0-36.0 g/dL Red Cell Distribution Width 11.6 11.0-15.5 % Platelet Count 195 130-400 K/uL Mean Platelet Volume 10.4 7.5-10.5 fL Immature Granulocyte % (Auto) 0.6 0-1 % Neutrophils (%) (Auto) 81.4 H 40.0-77.0 % Lymphocytes (%) (Auto) 13.7 L 21.0-51.0 % Monocytes (%) (Auto) 4.2 3.0-13.0 % Eosinophils (%) (Auto) 0.0 0.0-8.0 % Basophils (%) (Auto) 0.1 0.0-5.0 % Neutrophils # (Auto) 5.8 1.8-7.7 K/uL Lymphocytes # (Auto) 1.0 1.0-4.8 K/uL Monocytes # (Auto) 0.3 0.1-1.0 K/uL Eosinophils # (Auto) 0.00 0.00-0.70 K/uL Basophils # (Auto) 0.01 0.00-0.20 K/uL Absolute Immature Granulocyte (auto 0.04 0-1 K/uL Nucleated Red Blood Cells 0.0 0.0-0.19 % Sodium Level 135 L 136-145 mmol/L Potassium Level 4.2 3.5-5.1 mmol/L Chloride Level 104 101-111 mmol/L Carbon Dioxide Level 23 21-32 mmol/L Blood Urea Nitrogen 22 H 7-18 mg/dL Creatinine 1.1 0.5-1.3 mg/dL Glomerular Filtration Rate Calc 75 >90 mL/min Random Glucose 169 H 70-105 mg/dL Total Calcium 8.5 8.5-10.1 mg/dL Magnesium Level 1.90 1.80-2.40 mg/dL Total Bilirubin 0.6 0.2-1.0 mg/dL Gamma Glutamyl Transpeptidase 431 H 5-85 U/L Aspartate Amino Transf (AST/SGOT) 25 10-37 U/L Alanine Aminotransferase (ALT/SGPT) 33 12-78 U/L Alkaline Phosphatase 270 H 50-136 U/L Total Protein 7.7 6.0-8.3 g/dL Albumin 2.6 L 3.5-5.0 g/dL Troponin I High Sensitivity 7 4-75 ng/L Test 06/01/25 17:30 06/01/25 16:35 06/01/25 16:17 Range/Units Lactic Acid Level 1.4 0.8-2.5 mmol/L Influenza Type A Antigen Negative For Type A NEGATIVE Influenza Type B Antigen Negative For Type B NEGATIVE SARS-CoV-2 Antigen (Rapid) PRESUMPTIVE NEGATIVE NEGATIVE Total Creatine Kinase 105 21-232 U/L Current Medications Medications (Trade) Dose Ordered Sig/Dick Route PRN Reason Start Time Stop Time Status Last Admin Dose Admin Acetaminophen (TYLenol 325MG TAB) 650 mg Q4H PRN PO MILD PAIN (1-3) 06/01/25 20:30 07/01/25 20:29 Acetaminophen (TYLenol 325MG TAB) 650 mg Q6H PRN PO TEMPERATURE GREATER THAN 101.5 06/01/25 20:30 07/01/25 20:29 Albuterol (DUOneb) 1 udvial [id number] PRN IH COUGH/COLD SYMPTOMS 06/01/25 20:30 07/01/25 20:29 Azithromycin 250 ml @ 250 mls/hr Q24H IV 06/02/25 20:30 06/12/25 20:29 Ceftriaxone Sodium (ROCEphine 1G INJ) 1 gm Q24H IV 06/02/25 20:30 06/12/25 20:29 Chlordiazepoxide HCl (LIBrium 25 MG CAP) 25 mg Q2H PRN PO ALCOHOL WITHDRAWAL PROTOCOL 06/01/25 20:30 06/08/25 20:29 Chlordiazepoxide HCl (LIBrium 25 MG CAP) 50 mg Q1H PRN PO ALCOHOL WITHDRAWAL PROTOCOL 06/01/25 20:30 06/08/25 20:29 Dextrose (D50w) 50 ml AD PRN IV HYPOGLYCEMIA PROTOCOL 06/01/25 20:30 07/01/25 20:29 Famotidine (Pepcid 20mg Tab) 20 mg DAILY PO 06/02/25 09:00 07/02/25 08:59 06/02/25 09:32 20 MG Glucagon (Glucagon 1mg Kit) 1 mg AD PRN IM HYPOGLYCEMIA PROTOCOL 06/01/25 20:30 07/01/25 20:29 Guaifenesin/ Dextromethorphan (RobiTUSSin DM 200/20MG 10ML) 10 ml Q4H PRN PO COUGH 06/01/25 20:30 07/01/25 20:29 Insulin Human Regular (humuLIN R 100 UNIT/ML 3ML) INSULIN SLIDING SCAL... ACHS SQ 06/01/25 21:00 07/01/25 20:59 06/02/25 11:39 2 UNIT Lorazepam (AtiVAN) 2 mg Q4H PRN IVP ALCOHOL WITHDRAWAL PROTOCOL 06/01/25 20:30 06/08/25 20:29 Magnesium Sulfate 50 ml @ 0 mls/hr PROTOCOL PRN IV OTHER [SEE ORDER COMMENTS] 06/01/25 20:30 07/01/25 20:29 Ondansetron HCl (zoFRAN 4MG INJ) 4 mg Q6H PRN IV NAUSEA/VOMITING 06/01/25 20:30 07/01/25 20:29 Pharmacy Profile Note (Pharmacy Communication) 1 each PROTOCOL PRN MISC ETOH Withdrawal Score changes 06/01/25 20:30 06/01/25 20:19 DC Potassium Chloride 100 ml @ 100 mls/hr AD PRN IV POTASSIUM PROTOCOL 06/01/25 20:30 07/01/25 20:29 Potassium Chloride (K-Dur/Klor-Con 20meq) 20 meq AD PRN PO POTASSIUM PROTOCOL 06/01/25 20:30 07/01/25 20:29 Potassium Chloride (KCl 10% Elixir 20meq/15ml) 20 meq AD PRN PO POTASSIUM PROTOCOL 06/01/25 20:30 07/01/25 20:29 Sodium Chloride 1,000 ml @ 100 mls/hr Q10H IV 06/01/25 20:30 06/01/25 20:18 DC Thiamine HCl 100 mg/Folic Acid 1 mg/Multivitamins/ Minerals 10 ml/ Sodium Chloride 1,011.2 ml @ 100 mls/ hr Q24H IV 06/01/25 20:30 06/04/25 06:37 06/01/25 21:38 100 MLS/HR DIAGNOSTICS / RADIOLOGY: [ ] PATIENT: HARRIET GONZALEZ MR#: [id number] : 1960 SEX: M AGE: 64 LOCATION: [facility] ORDER 1610 STATUS: REG ER REPORT#: [id number] SERVICE 1608 REASON: cough ORDERING PHYSICIAN: YI HOPPER PROCEDURE: CXR1VW - CHEST 1VW EXAM: CR Chest, 1 View. CLINICAL HISTORY: cough COMPARISON: None provided. FINDINGS: LUNGS: Right middle lobe airspace disease may reflect an infectious process. PLEURAL SPACES: No evidence of pleural effusion or pneumothorax. MEDIASTINUM: The cardiomediastinal silhouette is within normal limits. BONES: No aggressive appearing osseous lesion seen. IMPRESSION: 1. Right middle lobe airspace disease, possibly infectious. /[place] DICTATED BY: CHELI MOODY Jr., MD DATE: 06/01/251752 ELECTRONICALLY SIGNED BY: CHELI MOODY Jr., MD DATE: 06/01/251752 ASSESSMENT: Suspected community-acquired pneumonia POA Suspected cholestatic liver disease, POA Acute kidney injury POA, resolved Normocytic normochromic anemia POA Diabetes POA Hypertension POA Hyperlipidemia POA Obesity POA Chronic Alcoholism POA Coronary artery disease with cardiac stent x1 to distal LCX 08/2020 POA PLAN: Suspected community-acquired pneumonia POA * Patient presented with fever, cough, chest tightness and chest x-ray consistent with right middle lobe disease * Sputum sample sent for Gram stain, culture and sensitivity results are pending * Continue IV Rocephin 1 g Q 24 hours and IV azithromycin 250 mg Q 24 hours * Continue PRN Robitussin 10 mL q.4 for cough and Tylenol 650 mg for fever and pain * Continue PRN DuoNeb inhalations * Maintain saturation over 92% continue aspiration precaution Suspected cholestatic liver disease, POA * Patient has elevated alkaline phosphatase 270 and GGT 431 and has a history of chronic alcohol use * Total bilirubin 0.6, AST 25, ALT 33, calcium 8.5 * Right upper quadrant ultrasound was ordered to rule out cholestatic liver disease (PBC, PSC, infiltrative disorders or alcohol associated) * We will review home medications that can have potential adverse effects Chronic alcoholism, POA * Patient admits to drinking 6 beers daily and last drink was 4 days ago * Patient placed on CIWA protocol for suspected alcohol withdrawal however so far no signs exhibit * Continue thiamine supplementation with IV banana bag Q 24 * Counseled on alcohol cessation GI prophylaxis with famotidine and DVT prophylaxis with SCDs ATTESTATION BY PHYSICIAN I have seen and examined the patient. I reviewed the documentation, medical decision making, and treatment plan as noted by the resident physician above. I agree with the findings and plan of care. RENETTA GOMEZ MD, HARSHAVARDHA MD Jun 02, 2025 12:31
[2025-06-02] MEDS: AZITHROMYCIN 500MG+NS 250ML 250 ML IV SCH (22:30)
[2025-06-03] VITALS (8 sets, daily range): BP systolic 126–162; BP diastolic 77–90; PULSE 68–87; RESP 17–18; TEMP 98–98.3; O2SAT 96–97
[2025-06-03 04:36] LABS: NUCLEATED RED BLOOD CELLS 0.0 % (0.0-0.19); PLATELET COUNT (AUTO) 190.0 K/uL (130-400); RED BLOOD CELL COUNT(AUTO) 3.88 MIL/uL (4.50-6.20); RED CELL DISTRIBUTION WIDTH 11.9 % (11.0-15.5); WHITE BLOOD COUNT (AUTO) 9.0 K/uL (4.8-10.8)
[2025-06-03 04:49] LABS: ASPARTATE AMINOTRANSFERASE 23.0 U/L (10-37); CREATININE 1.3 mg/dL (0.5-1.3); GLOMERULAR FILTR. RATE CALC 61.0 mL/min (>90); GLUCOSE,RANDOM 156.0 mg/dL (70-105); LDL DIRECT 49.0 mg/dL (0-99); SODIUM SERUM 138.0 mmol/L (136-145); TOTAL PROTEIN, SERUM 7.3 g/dL (6.0-8.3); UREA NITROGEN, BLOOD 17.0 mg/dL (7-18)
--- NOTE | 2025-06-03 06:26 | HMCIMG ---
EXAMINATION: ULTRASOUND OF THE ABDOMEN (LIMITED) WITH COLOR DOPPLER. CLINICAL HISTORY: Cholestasis, elevated alkaline phosphatase and GGT. History of right renal cyst. COMPARISON: None provided. TECHNIQUE: Real-time grayscale ultrasound images of the abdomen. In addition, color Doppler is medically necessary to perform in order to evaluate vascularity and blood flow. FINDINGS: Liver: Bulky in caliber; the right hepatic lobe measures 16.1 cm in the craniocaudal dimension. There is increased echogenicity of the hepatic parenchyma. There is no intrahepatic biliary ductal dilatation. There is normal spectral Doppler of the main portal vein (PSV-19 cm/s). There is well defined heteroechoic lesion that measures 2.0 x 1.8 x 2.1 cm in the right lobe with minimal vascularity. There is cyst with internal echoes that measures 1.8 x 1.1 x 1.4 cm in the right lobe. Gallbladder: Within normal limits with normal wall thickness (0.2 cm). No hyperemia or pericholecystic free fluid. There is no cholelithiasis. Common bile duct is normal in caliber, measuring 0.4 cm. Pancreas: Normal in caliber and heteroechoic echotexture. No calcification or dilated pancreatic duct. Measure 3.1 cm, 2.1 cm, and 2.1 cm respectively. The right kidney is not visualized, post-operative status. There is a well defined hypoechoic lesion with calcification noted in the right renal fossa/adrenal region that measures 1.5 x 1.1 x 1.1 cm, no vascularity. IMPRESSION: Hepatomegaly with hepatic steatosis. Heteroechoic pancreas may reflect fat infiltration. Complex hepatic cyst. Well defined heteroechoic lesion in the right lobe of the liver with minimal vascularity may reflect hemangioma. Well defined hypoechoic lesion with calcification noted in the right renal fossa/adrenal region may reflect adrenal mass. Status post right nephrectomy. Recommend contrast enhanced MR abdomen and pelvis. /[place]
--- NOTE | 2025-06-03 13:32 | PN ---
[facility] PROGRESS NOTE Date of Service: Jun 03, 2025 Time of Service: 13:21 HISTORY OF PRESENT ILLNESS: This is a 64-year-old male past medical history of diabetes, hypertension hyperlipidemia coronary artery disease with cardiac stent x1 and past surgical history of right nephrectomy who present to the ED for complaints of dry cough,fever and chest tightness when coughing which started 3 days ago.Patient reports he was in [place] 8 days ago,denies any sick contact at home. Seen and examined patient in the Ed awake,alert and coherent,appears comfortable.Patient denies chest pain,palpitation,shortness of breath,nausea vomiting,sore throat ,body pain and abdominal pain.Patient reports he had fever yesterday and took Tylenol.Latest V/S T 98.1,HR 83,BP 156/83 Sat 98% RA. Labs: Hemoglobin 13, hematocrit 38, platelet count 201. Sodium 135, creatinine 1.4, GFR 56, random glucose 156 acid 1.4 troponin six. Chest x-ray result revealed right middle lobe airspace disease possible infectious. While in the ER patient received 1 L NS bolus, Rocephin 1 g IV and azithromycin IV dexamethasone 6 mg IM and Robitussin and was admitted for further medical management . SUBJECTIVE: 06/02/2025: Patient was evaluated at bedside and he appears comfortable and appears in no acute cardiopulmonary distress. Patient admits to improving cough and denies fevers and chest tightness. Chest x-ray was consistent with right middle lobe consolidation and patient is currently being treated with Rocephin 1 g Q 24 and azithromycin 500 mg Q 24. Patient had elevated alkaline phosphatase 270, GGT 431and a right upper quadrant ultrasound was ordered. We will resume his home medications once available. We will continue to monitor for improvement. 06/03/25: Patient was evaluated at bedside in room 314 and he appears comfortable and appears in no acute cardiopulmonary distress. Patient doesn't have have any active complaints. Patient denies fever, cough, shortness of breath, abdominal pain. RUQ US show hepatic steatosis with hepatomegaly,Complex hepatic cyst. Well defined lesion in the right lobe of the liver with minimal vascularity may reflect hemangioma. Well defined hypoechoic lesion with calcification noted in the right renal fossa/adrenal region may reflect adrenal mass. Contrast enhanced MR abdomen was ordered. REVIEW OF SYSTEMS CONSTITUTIONAL: Denies fevers, chills, or night sweats. No unintentional weight loss reported. NEUROLOGICAL: Denies headache, motor weakness, sensory deficit, vertigo/spinning sensation, gait abnormalities, or tremors. ENT: No hearing loss, otalgia, otorrhea, rhinitis, rhinorrhea, hoarseness, or sore throat. CARDIOVASCULAR: Denies any exertional angina, dyspnea on exertion, orthopnea, paroxysmal nocturnal dyspnea, palpitations, life-threatening arrhythmias, claudication. PULMONARY: Dry cough, improving Denies any shortness of breath, phlegm/sp utum, hemoptysis, pleuritic chest pain. GASTROINTESTINAL: Denies any type of dysphagia to either liquids or solids. Denies nausea, vomiting, pyrosis, early satiety, abdominal pain, diarrhea, constipation, or changes in stool consistency or caliber. Denies coffee-ground emesis, hematemesis, hematochezia, or melanotic stools. GENITOURINARY: Denies frequency, urgency, nocturia, hematuria or incontinence (Storage/Irritative symptoms.) Low urinary stream, straining to void, urinary intermittency or hesitancy, splitting of the voiding stream, terminal dribbling. ENDOCRINOLOGIC: Denies polyuria, polydipsia, polyphagia or heat/cold intolerances. PHYSICAL EXAM GENERAL APPEARANCE: The patient is awake, alert, and oriented, in no acute cardiopulmonary distress. NEUROLOGICAL: Cranial nerves II-XII grossly intact. Motor is 5/5 in bilateral upper and lower extremities proximal to distal. No sensory deficits. HEENT: Face is symmetric. Pupils are equal and reactive. Extraocular movements are intact. NECK: Supple. No JVD. No thyromegaly. No submental, submandibular, pre- /postauricular, occipital or supraclavicular lymphadenopathy. CHEST: Normal chest expansion. No Telemetry. LUNGS: Absence of any rales, rhonchi or any wheezing. CARDIOVASCULAR: Regular. S1 and S2 normal. No appreciable rubs, murmurs or gallops. ABDOMEN: Soft, nontender, and nondistended. There is no rebound, voluntary guarding, or rigidity. : Deferred. No Patterson. EXTREMITIES: Non-edematous and not cyanotic. No clubbing. Good capillary refill. SKIN: No skin breakdown. Vital Signs (last 8hr) Date Time Temp Pulse Resp B/P (MAP) Pulse Ox O2 Delivery O2 Flow Rate FiO2 06/03/25 12:02 98.2 77 18 149/85 97 Room Air 06/03/25 08:00 98.1 74 18 140/82 96 Room Air 06/03/25 07:03 83 18 N/A Room Air 21 LABS: Laboratory: Test 06/03/25 10:55 06/03/25 04:30 06/02/25 15:40 06/02/25 10:00 Range/Units Whole Blood Glucose 181 H 70-110 MG/DL White Blood Count 9.0 # 4.8-10.8 K/uL Red Blood Count 3.88 L 4.50-6.20 MIL/uL Hemoglobin 12.4 L 14.0-18.0 g/dL Hematocrit 36.2 L 42-54 % Mean Corpuscular Volume 93.3 79-99 fL Mean Corpuscular Hemoglobin 32.0 27.0-33.0 pg Mean Corpuscular Hemoglobin Concent 34.3 32.0-36.0 g/dL Red Cell Distribution Width 11.9 11.0-15.5 % Platelet Count 190 130-400 K/uL Mean Platelet Volume 9.8 7.5-10.5 fL Nucleated Red Blood Cells 0.0 0.0-0.19 % Sodium Level 138 136-145 mmol/L Potassium Level 4.0 3.5-5.1 mmol/L Chloride Level 106 101-111 mmol/L Carbon Dioxide Level 29 21-32 mmol/L Blood Urea Nitrogen 17 7-18 mg/dL Creatinine 1.3 0.5-1.3 mg/dL Glomerular Filtration Rate Calc 61 >90 mL/min Random Glucose 156 H 70-105 mg/dL Total Calcium 8.2 L 8.5-10.1 mg/dL Total Bilirubin 0.3 # 0.2-1.0 mg/dL Direct Bilirubin 0.2 0.0-0.3 mg/dL Aspartate Amino Transf (AST/SGOT) 23 10-37 U/L Alanine Aminotransferase (ALT/SGPT) 33 12-78 U/L Alkaline Phosphatase 250 H 50-136 U/L Total Protein 7.3 6.0-8.3 g/dL Albumin 2.6 L 3.5-5.0 g/dL Triglycerides Level 121 30-200 mg/dL Cholesterol Level 117 # <200 mg/dL LDL Cholesterol 49 0-99 mg/dL HDL Cholesterol 46 29-71 mg/dL Bedside Glucose Comment Notified Nurse Urine Opiates Screen NEGATIVE NEGATIVE Urine Barbiturates Screen NEGATIVE NEGATIVE Urine Phencyclidine Screen NEGATIVE NEGATIVE Urine Amphetamines Screen NEGATIVE NEGATIVE Urine Benzodiazepines Screen NEGATIVE NEGATIVE Urine Cocaine Screen NEGATIVE NEGATIVE Urine Marijuana (THC) Screen NEGATIVE NEGATIVE Test 06/02/25 04:33 06/01/25 20:50 06/01/25 17:30 06/01/25 16:35 Range/Units Immature Granulocyte % (Auto) 0.6 0-1 % Neutrophils (%) (Auto) 81.4 H 40.0-77.0 % Lymphocytes (%) (Auto) 13.7 L 21.0-51.0 % Monocytes (%) (Auto) 4.2 3.0-13.0 % Eosinophils (%) (Auto) 0.0 0.0-8.0 % Basophils (%) (Auto) 0.1 0.0-5.0 % Neutrophils # (Auto) 5.8 1.8-7.7 K/uL Lymphocytes # (Auto) 1.0 1.0-4.8 K/uL Monocytes # (Auto) 0.3 0.1-1.0 K/uL Eosinophils # (Auto) 0.00 0.00-0.70 K/uL Basophils # (Auto) 0.01 0.00-0.20 K/uL Absolute Immature Granulocyte (auto 0.04 0-1 K/uL Hemoglobin A1c 6.8 H 4.0-6.0 % Estimated Average Glucose (eAG) 148 H 70-126 mg/dL Magnesium Level 1.90 1.80-2.40 mg/dL Gamma Glutamyl Transpeptidase 431 H 5-85 U/L Troponin I High Sensitivity 7 4-75 ng/L Lactic Acid Level 1.4 0.8-2.5 mmol/L Influenza Type A Antigen Negative For Type A NEGATIVE Influenza Type B Antigen Negative For Type B NEGATIVE SARS-CoV-2 Antigen (Rapid) PRESUMPTIVE NEGATIVE NEGATIVE Test 06/01/25 16:17 Range/Units Total Creatine Kinase 105 21-232 U/L Current Medications Medications (Trade) Dose Ordered Sig/Dick Route PRN Reason Start Time Stop Time Status Last Admin Dose Admin Acetaminophen (TYLenol 325MG TAB) 650 mg Q4H PRN PO MILD PAIN (1-3) 06/01/25 20:30 07/01/25 20:29 Acetaminophen (TYLenol 325MG TAB) 650 mg Q6H PRN PO TEMPERATURE GREATER THAN 101.5 06/01/25 20:30 07/01/25 20:29 Albuterol (DUOneb) 1 udvial [id number] PRN IH COUGH/COLD SYMPTOMS 06/01/25 20:30 07/01/25 20:29 Azithromycin 250 ml @ 250 mls/hr Q24H IV 06/02/25 20:30 06/12/25 20:29 06/02/25 22:30 250 MLS/HR Ceftriaxone Sodium (ROCEphine 1G INJ) 1 gm Q24H IV 06/02/25 20:30 06/12/25 20:29 06/02/25 22:30 1 GM Chlordiazepoxide HCl (LIBrium 25 MG CAP) 25 mg Q2H PRN PO ALCOHOL WITHDRAWAL PROTOCOL 06/01/25 20:30 06/08/25 20:29 Chlordiazepoxide HCl (LIBrium 25 MG CAP) 50 mg Q1H PRN PO ALCOHOL WITHDRAWAL PROTOCOL 06/01/25 20:30 06/08/25 20:29 Dextrose (D50w) 50 ml AD PRN IV HYPOGLYCEMIA PROTOCOL 06/01/25 20:30 07/01/25 20:29 Famotidine (Pepcid 20mg Tab) 20 mg DAILY PO 06/02/25 09:00 07/02/25 08:59 06/03/25 08:52 20 MG Glucagon (Glucagon 1mg Kit) 1 mg AD PRN IM HYPOGLYCEMIA PROTOCOL 06/01/25 20:30 07/01/25 20:29 Guaifenesin/ Dextromethorphan (RobiTUSSin DM 200/20MG 10ML) 10 ml Q4H PRN PO COUGH 06/01/25 20:30 07/01/25 20:29 Insulin Human Regular (humuLIN R 100 UNIT/ML 3ML) INSULIN SLIDING SCAL... ACHS SQ 06/01/25 21:00 07/01/25 20:59 06/03/25 12:05 2 UNIT Lorazepam (AtiVAN) 2 mg Q4H PRN IVP ALCOHOL WITHDRAWAL PROTOCOL 06/01/25 20:30 06/08/25 20:29 Magnesium Sulfate 50 ml @ 0 mls/hr PROTOCOL PRN IV OTHER [SEE ORDER COMMENTS] 06/01/25 20:30 07/01/25 20:29 Ondansetron HCl (zoFRAN 4MG INJ) 4 mg Q6H PRN IV NAUSEA/VOMITING 06/01/25 20:30 07/01/25 20:29 Pharmacy Profile Note (Pharmacy Communication) 1 each PROTOCOL PRN MISC ETOH Withdrawal Score changes 06/01/25 20:30 06/01/25 20:19 DC Potassium Chloride 100 ml @ 100 mls/hr AD PRN IV POTASSIUM PROTOCOL 06/01/25 20:30 07/01/25 20:29 Potassium Chloride (K-Dur/Klor-Con 20meq) 20 meq AD PRN PO POTASSIUM PROTOCOL 06/01/25 20:30 07/01/25 20:29 Potassium Chloride (KCl 10% Elixir 20meq/15ml) 20 meq AD PRN PO POTASSIUM PROTOCOL 06/01/25 20:30 07/01/25 20:29 Sodium Chloride 1,000 ml @ 100 mls/hr Q10H IV 06/01/25 20:30 06/01/25 20:18 DC Thiamine HCl 100 mg/Folic Acid 1 mg/Multivitamins/ Minerals 10 ml/ Sodium Chloride 1,011.2 ml @ 100 mls/ hr Q24H IV 06/01/25 20:30 06/04/25 06:37 06/02/25 22:30 100 MLS/HR DIAGNOSTICS / RADIOLOGY: [place] [address] IMAGING REPORT Signed PATIENT: HARRIET GONZALEZ MR#: [id number] : 1960 SEX: M AGE: 64 LOCATION: [facility] ORDER 120 STATUS: ADM IN REPORT#: [id number] SERVICE 120 REASON: Cholestatis? elevated Alk phosp and GGT ORDERING PHYSICIAN: LEONA GAN MD PROCEDURE: ABDRUQLTD - US ABDOMINAL RUQ\LTD EXAMINATION: ULTRASOUND OF THE ABDOMEN (LIMITED) WITH COLOR DOPPLER. CLINICAL HISTORY: Cholestasis, elevated alkaline phosphatase and GGT. History of right renal cyst. COMPARISON: None provided. TECHNIQUE: Real-time grayscale ultrasound images of the abdomen. In addition, color Doppler is medically necessary to perform in order to evaluate vascularity and blood flow. FINDINGS: Liver: Bulky in caliber; the right hepatic lobe measures 16.1 cm in the craniocaudal dimension. There is increased echogenicity of the hepatic parenchyma. There is no intrahepatic biliary ductal dilatation. There is normal spectral Doppler of the main portal vein (PSV-19 cm/s). There is well defined heteroechoic lesion that measures 2.0 x 1.8 x 2.1 cm in the right lobe with minimal vascularity. There is cyst with internal echoes that measures 1.8 x 1.1 x 1.4 cm in the right lobe. Gallbladder: Within normal limits with normal wall thickness (0.2 cm). No hyperemia or pericholecystic free fluid. There is no cholelithiasis. Common bile duct is normal in caliber, measuring 0.4 cm. Pancreas: Normal in caliber and heteroechoic echotexture. No calcification or dilated pancreatic duct. Measure 3.1 cm, 2.1 cm, and 2.1 cm respectively. The right kidney is not visualized, post-operative status. There is a well defined hypoechoic lesion with calcification noted in the right renal fossa/adrenal region that measures 1.5 x 1.1 x 1.1 cm, no vascularity. IMPRESSION: Hepatomegaly with hepatic steatosis. Heteroechoic pancreas may reflect fat infiltration. Complex hepatic cyst. Well defined heteroechoic lesion in the right lobe of the liver with minimal vascularity may reflect hemangioma. Well defined hypoechoic lesion with calcification noted in the right renal fossa/adrenal region may reflect adrenal mass. Status post right nephrectomy. Recommend contrast enhanced MR abdomen and pelvis. 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 liver disease, POA Acute kidney injury POA, resolved Normocytic normochromic anemia POA Diabetes POA Hypertension POA Hyperlipidemia POA Obesity POA Chronic Alcoholism POA Coronary artery disease with cardiac stent x1 to distal LCX 08/2020 POA PLAN: Suspected community-acquired pneumonia POA * Patient presented with fever, cough, chest tightness and chest x-ray consistent with right middle lobe disease * Sputum sample sent for Gram stain, culture and sensitivity results are pending * Continue IV Rocephin 1 g Q 24 hours and IV azithromycin 250 mg Q 24 hours * Continue PRN Robitussin 10 mL q.4 for cough and Tylenol 650 mg for fever and pain * Continue PRN DuoNeb inhalations * Maintain saturation over 92% continue aspiration precaution Suspected cholestatic liver disease, POA * Patient has elevated alkaline phosphatase 270 and GGT 431 and has a history of chronic alcohol use * Total bilirubin 0.6, AST 25, ALT 33, calcium 8.5 * Right upper quadrant ultrasound was ordered to rule out cholestatic liver disease (PBC, PSC, infiltrative disorders or alcohol associated) * RUQ US show hepatic steatosis with hepatomegaly,Complex hepatic cyst. Well defined lesion in the right lobe of the liver with minimal vascularity may reflect hemangioma. Well defined hypoechoic lesion with calcification noted in the right renal fossa/adrenal region may reflect adrenal mass. Contrast enhanced MR abdomen was ordered. * We will review home medications that can have potential adverse effects Chronic alcoholism, POA * Patient admits to drinking 6 beers daily and last drink was 4 days ago * Patient placed on CIWA protocol for suspected alcohol withdrawal however so far no signs exhibit * Continue thiamine supplementation with IV banana bag Q 24 * Counseled on alcohol cessation GI prophylaxis with famotidine and DVT prophylaxis with SCDs ATTESTATION BY PHYSICIAN I have seen and examined the patient. I reviewed the documentation, medical decision making, and treatment plan as noted by the resident physician above. I agree with the findings and plan of care. Chapito Alexander IV, MD, SHAJI MD Jun 03, 2025 13:32
[2025-06-04] VITALS (10 sets, daily range): BP systolic 137–159; BP diastolic 78–90; PULSE 67–81; RESP 16–20; TEMP 98.2–98.4; O2SAT 96–99
[2025-06-04 05:06] LABS: IMMATURE GRANULOCYTE ABSOLUTE 0.04 K/uL (0-1); NUCLEATED RED BLOOD CELLS 0.0 % (0.0-0.19); PLATELET COUNT (AUTO) 200 K/uL (130-400); RED BLOOD CELL COUNT(AUTO) 3.84 MIL/uL (4.50-6.20); RED CELL DISTRIBUTION WIDTH 11.7 % (11.0-15.5); WHITE BLOOD COUNT (AUTO) 8.2 K/uL (4.8-10.8)
[2025-06-04 05:29] LABS: ASPARTATE AMINOTRANSFERASE 27.0 U/L (10-37); CREATININE 1.1 mg/dL (0.5-1.3); GLOMERULAR FILTR. RATE CALC 75.0 mL/min (>90); GLUCOSE,RANDOM 140.0 mg/dL (70-105); SODIUM SERUM 143.0 mmol/L (136-145); TOTAL PROTEIN, SERUM 7.4 g/dL (6.0-8.3); UREA NITROGEN, BLOOD 12.0 mg/dL (7-18)
[2025-06-04] MEDS: ASPIRIN 81MG CHEW TAB PO SCH (09:20)
[2025-06-04] MEDS: LISINOPRIL 10 MG TABLET PO SCH (09:20)
--- NOTE | 2025-06-04 14:00 | PN ---
[facility] PROGRESS NOTE Date of Service: Jun 04, 2025 Time of Service: 14:00 HISTORY OF PRESENT ILLNESS: This is a 64-year-old male past medical history of diabetes, hypertension hyperlipidemia coronary artery disease with cardiac stent x1 and past surgical history of right nephrectomy who present to the ED for complaints of dry cough,fever and chest tightness when coughing which started 3 days ago.Patient reports he was in [place] 8 days ago,denies any sick contact at home. Seen and examined patient in the Ed awake,alert and coherent,appears comfortable.Patient denies chest pain,palpitation,shortness of breath,nausea vomiting,sore throat ,body pain and abdominal pain.Patient reports he had fever yesterday and took Tylenol.Latest V/S T 98.1,HR 83,BP 156/83 Sat 98% RA. Labs: Hemoglobin 13, hematocrit 38, platelet count 201. Sodium 135, creatinine 1.4, GFR 56, random glucose 156 acid 1.4 troponin six. Chest x-ray result revealed right middle lobe airspace disease possible infectious. While in the ER patient received 1 L NS bolus, Rocephin 1 g IV and azithromycin IV dexamethasone 6 mg IM and Robitussin and was admitted for further medical management . SUBJECTIVE: 06/02/2025: Patient was evaluated at bedside and he appears comfortable and appears in no acute cardiopulmonary distress. Patient admits to improving cough and denies fevers and chest tightness. Chest x-ray was consistent with right middle lobe consolidation and patient is currently being treated with Rocephin 1 g Q 24 and azithromycin 500 mg Q 24. Patient had elevated alkaline phosphatase 270, GGT 431and a right upper quadrant ultrasound was ordered. We will resume his home medications once available. We will continue to monitor for improvement. 06/03/25: Patient was evaluated at bedside in room 314 and he appears comfortable and appears in no acute cardiopulmonary distress. Patient doesn't have have any active complaints. Patient denies fever, cough, shortness of breath, abdominal pain. RUQ US show hepatic steatosis with hepatomegaly,Complex hepatic cyst. Well defined lesion in the right lobe of the liver with minimal vascularity may reflect hemangioma. Well defined hypoechoic lesion with calcification noted in the right renal fossa/adrenal region may reflect adrenal mass. Contrast enhanced MR abdomen was ordered. 06/04/2025: Patient was evaluated at bedside in room 314 and appears comforta ble and in no acute cardiopulmonary distress. Patients' son was used as potato peeling machine operator via telephone. Patient reports improved symptoms and denies fevers, cough, shortness of breath, abdominal pain, diarrhea. Ultrasound abdomen findings were consistent with a well-defined lesion in the liver with minimal vascularity and MRI of abdomen was ordered for further evaluation of this inci dental finding. We will continue Rocephin and azithromycin in the meantime and await for the imaging to see if patient needs GI follow up. REVIEW OF SYSTEMS CONSTITUTIONAL: Denies fevers, chills, or night sweats. No unintentional weight loss reported. NEUROLOGICAL: Denies headache, motor weakness, sensory deficit, vertigo/spinning sensation, gait abnormalities, or tremors. ENT: No hearing loss, otalgia, otorrhea, rhinitis, rhinorrhea, hoarseness, or sore throat. CARDIOVASCULAR: Denies any exertional angina, dyspnea on exertion, orthopnea, paroxysmal nocturnal dyspnea, palpitations, life-threatening arrhythmias, claudication. PULMONARY: Dry cough, improving Denies any shortness of breath, phlegm/sputum, hemoptysis, pleuritic chest pain. GASTROINTESTINAL: Denies any type of dysphagia to either liquids or solids. Denies nausea, vomiting, pyrosis, early satiety, abdominal pain, diarrhea, constipation, or changes in stool consistency or caliber. Denies coffee-ground emesis, hematemesis, hematochezia, or melanotic stools. GENITOURINARY: Denies frequency, urgency, nocturia, hematuria or incontinence (Storage/Irritative symptoms.) Low urinary stream, straining to void, urinary intermittency or hesitancy, splitting of the voiding stream, terminal dribbling. ENDOCRINOLOGIC: Denies polyuria, polydipsia, polyphagia or heat/cold intolerances. PHYSICAL EXAM GENERAL APPEARANCE: The patient is awake, alert, and oriented, in no acute cardiopulmonary distress. NEUROLOGICAL: Cranial nerves II-XII grossly intact. Motor is 5/5 in bilateral upper and lower extremities proximal to distal. No sensory deficits. HEENT: Face is symmetric. Pupils are equal and reactive. Extraocular movements are intact. NECK: Supple. No JVD. No thyromegaly. No submental, submandibular, pre- /postauricular, occipital or supraclavicular lymphadenopathy. CHEST: Normal chest expansion. No Telemetry. LUNGS: Absence of any rales, rhonchi or any wheezing. CARDIOVASCULAR: Regular. S1 and S2 normal. No appreciable rubs, murmurs or gallops. ABDOMEN: Soft, nontender, and nondistended. There is no rebound, voluntary guarding, or rigidity. : Deferred. No [place]. EXTREMITIES: Non-edematous and not cyanotic. No clubbing. Good capillary refill. SKIN: No skin breakdown. Vital Signs (last 8hr) Date Time Temp Pulse Resp B/P (MAP) Pulse Ox O2 Delivery O2 Flow Rate FiO2 06/04/25 12:13 98.2 67 20 137/79 98 Room Air 06/04/25 08:14 98.2 74 18 153/90 96 Room Air 06/04/25 08:00 96 Room Air* 0 21 06/04/25 06:27 80 18 N/A Room Air 21 LABS: Laboratory: Test 06/04/25 11:08 06/04/25 04:51 06/03/25 04:30 Range/Units Whole Blood Glucose 204 #H 70-110 MG/DL Bedside Glucose Comment Notified Nurse White Blood Count 8.2 4.8-10.8 K/uL Red Blood Count 3.84 L 4.50-6.20 MIL/uL Hemoglobin 12.3 L 14.0-18.0 g/dL Hematocrit 36.0 L 42-54 % Mean Corpuscular Volume 93.8 79-99 fL Mean Corpuscular Hemoglobin 32.0 27.0-33.0 pg Mean Corpuscular Hemoglobin Concent 34.2 32.0-36.0 g/dL Red Cell Distribution Width 11.7 11.0-15.5 % Platelet Count 200 130-400 K/uL Mean Platelet Volume 9.8 7.5-10.5 fL Immature Granulocyte % (Auto) 0.5 0-1 % Neutrophils (%) (Auto) 63.6 40.0-77.0 % Lymphocytes (%) (Auto) 23.0 21.0-51.0 % Monocytes (%) (Auto) 10.1 3.0-13.0 % Eosinophils (%) (Auto) 2.3 0.0-8.0 % Basophils (%) (Auto) 0.5 0.0-5.0 % Neutrophils # (Auto) 5.2 1.8-7.7 K/uL Lymphocytes # (Auto) 1.9 1.0-4.8 K/uL Monocytes # (Auto) 0.8 0.1-1.0 K/uL Eosinophils # (Auto) 0.19 0.00-0.70 K/uL Basophils # (Auto) 0.04 0.00-0.20 K/uL Absolute Immature Granulocyte (auto 0.04 0-1 K/uL Nucleated Red Blood Cells 0.0 0.0-0.19 % Sodium Level 143 136-145 mmol/L Potassium Level 3.9 3.5-5.1 mmol/L Chloride Level 106 101-111 mmol/L Carbon Dioxide Level 26 21-32 mmol/L Blood Urea Nitrogen 12 7-18 mg/dL Creatinine 1.1 0.5-1.3 mg/dL Glomerular Filtration Rate Calc 75 >90 mL/min Random Glucose 140 H 70-105 mg/dL Total Calcium 8.3 L 8.5-10.1 mg/dL Total Bilirubin 0.5 0.2-1.0 mg/dL Aspartate Amino Transf (AST/SGOT) 27 10-37 U/L Alanine Aminotransferase (ALT/SGPT) 40 12-78 U/L Alkaline Phosphatase 282 H 50-136 U/L Total Protein 7.4 6.0-8.3 g/dL Albumin 2.7 L 3.5-5.0 g/dL Direct Bilirubin 0.2 0.0-0.3 mg/dL Triglycerides Level 121 30-200 mg/dL Cholesterol Level 117 # <200 mg/dL LDL Cholesterol 49 0-99 mg/dL HDL Cholesterol 46 29-71 mg/dL Current Medications Medications (Trade) Dose Ordered Sig/Dick Route PRN Reason Start Time Stop Time Status Last Admin Dose Admin Acetaminophen (TYLenol 325MG TAB) 650 mg Q4H PRN PO MILD PAIN (1-3) 06/01/25 20:30 07/01/25 20:29 Acetaminophen (TYLenol 325MG TAB) 650 mg Q6H PRN PO TEMPERATURE GREATER THAN 101.5 06/01/25 20:30 07/01/25 20:29 Albuterol (DUOneb) 1 udvial [id number] PRN IH COUGH/COLD SYMPTOMS 06/01/25 20:30 07/01/25 20:29 Aspirin (Aspirin 81mg Chew Tab) 81 mg DAILY PO 06/04/25 09:00 07/04/25 08:59 06/04/25 09:20 81 MG Atorvastatin Calcium (LIPItor 40MG) 40 mg HS PO 06/04/25 21:00 07/04/25 20:59 Azithromycin 250 ml @ 250 mls/hr Q24H IV 06/02/25 20:30 06/12/25 20:29 06/03/25 20:28 250 MLS/HR Ceftriaxone Sodium (ROCEphine 1G INJ) 1 gm Q24H IV 06/02/25 20:30 06/12/25 20:29 06/03/25 20:29 1 GM Chlordiazepoxide HCl (LIBrium 25 MG CAP) 25 mg Q2H PRN PO ALCOHOL WITHDRAWAL PROTOCOL 06/01/25 20:30 06/08/25 20:29 Chlordiazepoxide HCl (LIBrium 25 MG CAP) 50 mg Q1H PRN PO ALCOHOL WITHDRAWAL PROTOCOL 06/01/25 20:30 06/08/25 20:29 Dextrose (D50w) 50 ml AD PRN IV HYPOGLYCEMIA PROTOCOL 06/01/25 20:30 07/01/25 20:29 Famotidine (Pepcid 20mg Tab) 20 mg DAILY PO 06/02/25 09:00 07/02/25 08:59 06/04/25 09:20 20 MG Glucagon (Glucagon 1mg Kit) 1 mg AD PRN IM HYPOGLYCEMIA PROTOCOL 06/01/25 20:30 07/01/25 20:29 Guaifenesin/ Dextromethorphan (RobiTUSSin DM 200/20MG 10ML) 10 ml Q4H PRN PO COUGH 06/01/25 20:30 07/01/25 20:29 Insulin Human Regular (humuLIN R 100 UNIT/ML 3ML) INSULIN SLIDING SCAL... ACHS SQ 06/01/25 21:00 07/01/25 20:59 06/04/25 11:36 3 UNIT Lisinopril (Prinivil 10mg) 10 mg DAILY PO 06/04/25 09:00 07/04/25 08:59 06/04/25 09:20 10 MG Lorazepam (AtiVAN) 2 mg Q4H PRN IVP ALCOHOL WITHDRAWAL PROTOCOL 06/01/25 20:30 06/08/25 20:29 Magnesium Sulfate 50 ml @ 0 mls/hr PROTOCOL PRN IV OTHER [SEE ORDER COMMENTS] 06/01/25 20:30 07/01/25 20:29 Metoprolol Tartrate (loprESSOR) 25 mg BID PO 06/04/25 09:00 07/04/25 08:59 06/04/25 09:20 25 MG Ondansetron HCl (zoFRAN 4MG INJ) 4 mg Q6H PRN IV NAUSEA/VOMITING 06/01/25 20:30 07/01/25 20:29 Pharmacy Profile Note (Pharmacy Communication) 1 each PROTOCOL PRN MISC ETOH Withdrawal Score changes 06/01/25 20:30 06/01/25 20:19 DC Potassium Chloride 100 ml @ 100 mls/hr AD PRN IV POTASSIUM PROTOCOL 06/01/25 20:30 07/01/25 20:29 Potassium Chloride (K-Dur/Klor-Con 20meq) 20 meq AD PRN PO POTASSIUM PROTOCOL 06/01/25 20:30 07/01/25 20:29 Potassium Chloride (KCl 10% Elixir 20meq/15ml) 20 meq AD PRN PO POTASSIUM PROTOCOL 06/01/25 20:30 07/01/25 20:29 Sodium Chloride 1,000 ml @ 100 mls/hr Q10H IV 06/01/25 20:30 06/01/25 20:18 DC Thiamine HCl 100 mg/Folic Acid 1 mg/Multivitamins/ Minerals 10 ml/ Sodium Chloride 1,011.2 ml @ 100 mls/ hr Q24H IV 06/01/25 20:30 06/04/25 06:37 DC 06/03/25 20:30 100 MLS/HR DIAGNOSTICS / RADIOLOGY: [ ] PATIENT: HARRIET GONZALEZ MR#: [id number] : 1960 SEX: M AGE: 64 LOCATION: [facility] ORDER 06 STATUS: ADM IN REPORT#: [id number] SERVICE 120 REASON: Cholestatis? elevated Alk phosp and GGT ORDERING PHYSICIAN: LEONA GAN MD PROCEDURE: ABDRUQLTD - US ABDOMINAL RUQ\LTD EXAMINATION: ULTRASOUND OF THE ABDOMEN (LIMITED) WITH COLOR DOPPLER. CLINICAL HISTORY: Cholestasis, elevated alkaline phosphatase and GGT. History of right renal cyst. COMPARISON: None provided. TECHNIQUE: Real-time grayscale ultrasound images of the abdomen. In addition, color Doppler is medically necessary to perform in order to evaluate vascularity and blood flow. FINDINGS: Liver: Bulky in caliber; the right hepatic lobe measures 16.1 cm in the craniocaudal dimension. There is increased echogenicity of the hepatic parenchyma. There is no intrahepatic biliary ductal dilatation. There is normal spectral Doppler of the main portal vein (PSV-19 cm/s). There is well defined heteroechoic lesion that measures 2.0 x 1.8 x 2.1 cm in the right lobe with minimal vascularity. There is cyst with internal echoes that measures 1.8 x 1.1 x 1.4 cm in the right lobe. Gallbladder: Within normal limits with normal wall thickness (0.2 cm). No hyperemia or pericholecystic free fluid. There is no cholelithiasis. Common bile duct is normal in caliber, measuring 0.4 cm. Pancreas: Normal in caliber and heteroechoic echotexture. No calcification or dilated pancreatic duct. Measure 3.1 cm, 2.1 cm, and 2.1 cm respectively. The right kidney is not visualized, post-operative status. There is a well defined hypoechoic lesion with calcification noted in the right renal fossa/adrenal region that measures 1.5 x 1.1 x 1.1 cm, no vascularity. IMPRESSION: Hepatomegaly with hepatic steatosis. Heteroechoic pancreas may reflect fat infiltration. Complex hepatic cyst. Well defined heteroechoic lesion in the right lobe of the liver with minimal vascularity may reflect hemangioma. Well defined hypoechoic lesion with calcification noted in the right renal fossa/adrenal region may reflect adrenal mass. Status post right nephrectomy. Recommend contrast enhanced MR abdomen and pelvis. /[place] DICTATED BY: MARGARITO LAWRENCE MD DATE: 06/03/25724 ELECTRONICALLY SIGNED BY: MARGARITO LAWRENCE MD DATE: 06/03/25724 ASSESSMENT: Suspected community-acquired pneumonia POA Suspected cholestatic liver disease, POA Acute kidney injury POA, resolved Normocytic normochromic anemia POA Diabetes POA Hypertension POA Hyperlipidemia POA Obesity POA Chronic Alcoholism POA Coronary artery disease with cardiac stent x1 to distal LCX 08/2020 POA PLAN: Suspected community-acquired pneumonia, POA * Patient presented with fever, cough, chest tightness and chest x-ray consistent with right middle lobe disease * Sputum sample sent for Gram stain, culture and showed growth of normal oropharyngeal jun * Continue IV Rocephin (day 3) 1 g Q 24 hours and IV azithromycin (day 3) 250 mg Q 24 hours * Continue PRN Robitussin 10 mL q.4 for cough and Tylenol 650 mg for fever and pain * Continue PRN DuoNeb inhalations * Maintain saturation over 92% continue aspiration precaution Suspected cholestatic liver disease, POA * Patient has elevated alkaline phosphatase 270 and GGT 431 and has a history of chronic alcohol use * Total bilirubin 0.6, AST 25, ALT 33, calcium 8.5 * Right upper quadrant ultrasound was ordered to rule out cholestatic liver disease (PBC, PSC, infiltrative disorders or alcohol associated) * RUQ US show hepatic steatosis with hepatomegaly,Complex hepatic cyst. Well defined lesion in the right lobe of the liver with minimal vascularity may reflect hemangioma. Well defined hypoechoic lesion with calcification noted in the right renal fossa/adrenal region may reflect adrenal mass. Contrast enhanced MR abdomen was ordered, awaiting imaging * We will review home medications that can have potential adverse effects Chronic alcoholism, POA * Patient admits to drinking 6 beers daily and last drink was 4 days ago * Patient placed on CIWA protocol for suspected alcohol withdrawal however so far no signs exhibit * Continue thiamine supplementation with IV banana bag Q 24 * Counseled on alcohol cessation Continue aspirin 81, Lipitor 40, lisinopril 10 mg and metoprolol [id number] mg b.i.d. daily GI prophylaxis with famotidine and DVT prophylaxis with SCDs ATTESTATION BY PHYSICIAN I have evaluated the patient chart, medical records, and spoke with appropriate staff. I reviewed the documentation, medical decision making, and treatment plan as noted by the resident provider above. I agree with the findings and plan of care. RAMANDEEP MANLEY MD, HARSHAVARDHA MD Jun 04, 2025 14:00
[2025-06-05] VITALS: BP 150/87; PULSE 75; RESP 18; TEMP 98.1
[2025-06-05 04:00] VITALS: BP 145/71; PULSE 69; RESP 17; TEMP 97.7
[2025-06-05 05:01] LABS: NUCLEATED RED BLOOD CELLS 0.0 % (0.0-0.19); PLATELET COUNT (AUTO) 204.0 K/uL (130-400); RED BLOOD CELL COUNT(AUTO) 3.87 MIL/uL (4.50-6.20); RED CELL DISTRIBUTION WIDTH 11.8 % (11.0-15.5); WHITE BLOOD COUNT (AUTO) 8.1 K/uL (4.8-10.8)
[2025-06-05 05:24] LABS: CREATININE 1.1 mg/dL (0.5-1.3); GLOMERULAR FILTR. RATE CALC 75.0 mL/min (>90); GLUCOSE,RANDOM 149.0 mg/dL (70-105); SODIUM SERUM 137.0 mmol/L (136-145); UREA NITROGEN, BLOOD 11.0 mg/dL (7-18)
[2025-06-05 07:38] VITALS: PULSE 71; RESP 18; O2SAT 99
[2025-06-05 08:00] VITALS: BP 146/81; PULSE 73; RESP 12; TEMP 98.8
[2025-06-05 11:38] VITALS: O2SAT 97
[2025-06-05 12:00] VITALS: BP 144/84; PULSE 60; RESP 16; TEMP 97.9
[2025-06-05] MEDS ORDERED: DOXY100T21 PO (12:22)
--- NOTE | 2025-06-05 12:26 | DS ---
Discharge Summary Hospital Course Summary: This is a 64-year-old male past medical history of diabetes, hypertension, hyperlipidemia, coronary artery disease with cardiac stent x1 to distal LCX 08/2020, and past surgical history of right nephrectomy who present to the ED for complaints of dry cough, fever and chest tightness when coughing which sta rted 3 days ago. Patient reports he was in [place] 8 days ago, denies any sick contact at home.Patient denies chest pain, palpitation, shortness of breath, nausea vomiting, sore throat, body pain and abdominal pain. Chest x-ray result revealed right middle lobe airspace disease possible infectious. While in the ER patient received 1 L NS bolus, Rocephin 1 g IV and azithromycin, IV dexamethasone 6 mg IM and Robitussin and was admitted for further medical management. During the course of hospitalization patient remained afebrile, blood culture showed no growth and respiratory culture showed only growth of normal oropharyngeal jun. Patient showed rapid improvement in clinical symptoms with the antibiotics and steroid therapy and was found to have incidental elevation in alkaline phosphatase and GGT. A right upper quadrant ultrasound was obtained to ruled out cholestatic type of liver injury however it only revealed hepatic steatosis, complex hepatic cyst and a well-defined lesion in the right lobe of liver with minimal vascularity. It also reported a well-defined hyperechoic lesion with calcification on the right renal fossa/adrenal region possibly reflecting a renal mass. Further evaluation with MRI abdomen was recommended however it could not be performed during this hospitalization. In the light of patient's chronic alcohol use this can explained by alcohol associated liver injury however further evaluation by dial brusher as an outpatient is warranted. At the time of discharge patient was hemodynamically stable breathing comfortably at room air and denied any cough, fevers, shortness of breath and was advised to continue doxycycline 100 mg twice daily for5 days. Patient was advised to follow up with his PCP in 2-3 days and obtain a referral to [place] for further evaluation of abnormal liver function tests. Patient was instructed to continue rest of his medications at his usual dose. Patient was advised to watch for red flag signs like increasing fevers, cough, shortness of breath, chest pain or abdominal pain and return to ED if needed. Rn Urgent Care(s): None Procedure(s): PATIENT: HARRIET GONZALEZ MR#: [id number] : 1960 SEX: M AGE: 64 LOCATION: [facility] ORDER 1610 STATUS: REG ER REPORT#: [id number] SERVICE 1608 REASON: cough ORDERING PHYSICIAN: YI HOPPER PROCEDURE: CXR1VW - CHEST 1VW EXAM: CR Chest, 1 View. CLINICAL HISTORY: cough COMPARISON: None provided. FINDINGS: LUNGS: Right middle lobe airspace disease may reflect an infectious process. PLEURAL SPACES: No evidence of pleural effusion or pneumothorax. MEDIASTINUM: The cardiomediastinal silhouette is within normal limits. BONES: No aggressive appearing osseous lesion seen. IMPRESSION: 1. Right middle lobe airspace disease, possibly infectious. /[place] DICTATED BY: CHELI MOODY Jr., MD DATE: 06/01/251752 ELECTRONICALLY SIGNED BY: CHELI MOODY Jr., MD DATE: 06/01/251752 PATIENT: HARRIET GONZALEZ MR#: [id number] : 1960 SEX: M AGE: 64 LOCATION: H ORDER 1207 STATUS: ADM IN REPORT#: [id number] SERVICE 120 REASON: Cholestatis? elevated Alk phosp and GGT ORDERING PHYSICIAN: LEONA GAN MD PROCEDURE: ABDRUQLTD - US ABDOMINAL RUQ\LTD EXAMINATION: ULTRASOUND OF THE ABDOMEN (LIMITED) WITH COLOR DOPPLER. CLINICAL HISTORY: Cholestasis, elevated alkaline phosphatase and GGT. History of right renal cyst. COMPARISON: None provided. TECHNIQUE: Real-time grayscale ultrasound images of the abdomen. In addition, color Doppler is medically necessary to perform in order to evaluate vascularity and blood flow. FINDINGS: Liver: Bulky in caliber; the right hepatic lobe measures 16.1 cm in the craniocaudal dimension. There is increased echogenicity of the hepatic parenchyma. There is no intrahepatic biliary ductal dilatation. There is normal spectral Doppler of the main portal vein (PSV-19 cm/s). There is well defined heteroechoic lesion that measures 2.0 x 1.8 x 2.1 cm in the right lobe with minimal vascularity. There is cyst with internal echoes that measures 1.8 x 1.1 x 1.4 cm in the right lobe. Gallbladder: Within normal limits with normal wall thickness (0.2 cm). No hyperemia or pericholecystic free fluid. There is no cholelithiasis. Common bile duct is normal in caliber, measuring 0.4 cm. Pancreas: Normal in caliber and heteroechoic echotexture. No calcification or dilated pancreatic duct. Measure 3.1 cm, 2.1 cm, and 2.1 cm respectively. The right kidney is not visualized, post-operative status. There is a well defined hypoechoic lesion with calcification noted in the right renal fossa/adrenal region that measures 1.5 x 1.1 x 1.1 cm, no vascularity. IMPRESSION: Hepatomegaly with hepatic steatosis. Heteroechoic pancreas may reflect fat infiltration. Complex hepatic cyst. Well defined heteroechoic lesion in the right lobe of the liver with minimal vascularity may reflect hemangioma. Well defined hypoechoic lesion with calcification noted in the right renal fossa/adrenal region may reflect adrenal mass. Status post right nephrectomy. Recommend contrast enhanced MR abdomen and pelvis. /[place] DICTATED BY: MARGARITO LAWRENCE MD DATE: 06/03/25724 ELECTRONICALLY SIGNED BY: MARGARITO LAWRENCE MD DATE: 06/03/25724 Assessment/Plan: ASSESSMENT: Community-acquired pneumonia Suspected cholestatic liver disease Acute kidney injury POA, resolved Normocytic normochromic anemia Diabetes Hypertension Hyperlipidemia Obesity Chronic Alcoholism Coronary artery disease with cardiac stent x1 to distal LCX 08/2020 POA Discharge Instructions: ADMISSION DATE : 06/01/2025 DISCHARGE DATE: 06/05/2025 DISPOSITION : Home CONDITION : Stable PROFESSOR OF ASTRONOMY(S) : None FOLLOW UP APPOINTMENT(S) : f/u with PCP in one 2-3 days, f/u with gastroent erologist after obtaining a referral from your PCP for evaluation of abnormal liver function tests PROCEDURES: IMAGING (S) : report attached to summary MICROBIOLOGY : report attached to summary ACTIVITY : ad chapo HOME MEDICATIONS : Continued Home Medications: Active Scripts Doxycycline Monohydrate (Doxycycline Monohydrate) 100 Mg Tablet, 1 TAB PO BID for 5 Days, #10 TAB 0 Refills Prov:LEIGH CERDA MD 06/05/25 [Nitroglycerin 0.4MG Sl Tab] 0.4 MG TAB.SUBL No Conflict Check, 0.4 MG SL AD PRN for CHEST PAIN, #15 TAB.SL 1 Refill Prov:YUSRA YIN [facility] 08/15/20 Metoprolol Tartrate (Lopressor) 25 Mg Tab, 25 MG PO BID for 30 Days, #60 TAB Prov:YUSRA YIN [facility] 08/15/20 Lisinopril (Lisinopril) 10 Mg Tablet, 10 MG PO DAILY for 30 Days, #30 TAB Prov:YUSRA YIN [facility] 08/15/20 Aspirin (ASPIRIN 81MG CHEW TAB) 81 Mg Tab.chew, 81 MG PO DAILY for 30 Days, #30 TAB.CHEW Prov:YUSRA YIN [facility] 08/15/20 Atorvastatin Calcium (LIPITOR) 40 Mg Tablet, 40 MG PO HS for 30 Days, #30 TAB Prov:YUSRA YIN [facility] 08/15/20 Reported Medications Glipizide (Glucotrol Xl) 10 Mg Tab.er.24, 10 MG PO DAILY 08/13/20 Linagliptin (Tradjenta) 5 Mg Tablet, 5 MG PO DAILY, TAB 08/13/20 New Medications: Doxycycline Monohydrate (Doxycycline Monohydrate) 100 Mg Tablet 1 TAB PO BID for 5 Days, #10 TAB 0 Refills Continued Medications: Aspirin (Aspirin 81MG Chew Tab) 81 Mg Tab.chew 81 MG PO DAILY for 30 Days, #30 TAB.CHEW Atorvastatin Calcium (Lipitor) 40 Mg Tablet 40 MG PO HS for 30 Days, #30 TAB Glipizide (Glucotrol Xl) 10 Mg Tab.er.24 10 MG PO DAILY Linagliptin (Tradjenta) 5 Mg Tablet 5 MG PO DAILY, TAB Lisinopril (Lisinopril) 10 Mg Tablet 10 MG PO DAILY for 30 Days, #30 TAB Metoprolol Tartrate (Lopressor) 25 Mg Tab 25 MG PO BID for 30 Days, #60 TAB [Nitroglycerin 0.4MG Sl Tab] () 0.4 MG TAB.SUBL 0.4 MG SL AD PRN for CHEST PAIN, #15 TAB.SL 1 Refill Time spent arranging discharge: 1-30 minutes ATTESTATION BY PHYSICIAN I have seen and examined the patient. I reviewed the documentation, medical decision making, and treatment plan as noted by the resident physician above. I agree with the findings and plan of care. RENETTA GOMEZ MD, HARSHAVARDHA MD Jun 05, 2025 12:26
--- NOTE | 2025-06-05 15:51 | NUR ---
DC INSTRUCTIONS GIVEN AND ACKNOWLEDGED. IV REMOVED
== END 2025-06-05 16:15 | disposition home or self-care (01) | DRG 194 ==
LOC: EDH 15:49 → EDHIP 20:07 → 3CH 22:10
PROVIDERS: ADMIT Internal Medicine; ATTEND Internal Medicine
DX: J18.9 Pneumonia, unspecified organism (principal); N17.9 Acute kidney failure, unspecified; K76.89 Other specified diseases of liver; D64.9 Anemia, unspecified; E11.9 Type 2 diabetes mellitus without complications; E66.9 Obesity, unspecified; E78.5 Hyperlipidemia, unspecified; I10 Essential (primary) hypertension; F10.20 Alcohol dependence, uncomplicated; K76.0 Fatty (change of) liver, not elsewhere classified; I25.10 Atherosclerotic heart disease of native coronary artery without angina pectoris; Z90.5 Acquired absence of kidney; I25.2 Old myocardial infarction; Z95.5 Presence of coronary angioplasty implant and graft; Z68.31 Body mass index [BMI] 31.0-31.9, adult
CPT/HCPCS: 36415; 71045; 76705; 80048; 80053; 80061; 80076; 80305; 82550; 82948; 82977; 83036; 83605; 83735; 84484; 85025; 85027; 87040; 87071; 87205; 87426; 87804; 93005; 94640; 96365; 96367; 96368; 96372; 99285; G0378; J0456; J0696; J1100; J1815; J3411; J3490; J7030